=== PATIENT | female | born 1945 | race Caucasian/White ===

== ENCOUNTER → 2023-08-28 14:36 | Outpatient (REF) | payer MEDICARE, BC, SELFPAY ==
[2023-08-28 15:42] LABS: % Basophils 0.5 % (0-2); % Eosinophils 0.3 % (0-6); % Immature Granulocytes 0.4 % (0-0.5); % Lymphocytes 27.5 % (20.5-51.1); % Monocytes 10.3 % (1.7-9.3); Absolute Basophils 0.1 10^3/uL (0-0.2); Absolute Eosinophils 0.1 10^3/uL (0-0.7); Absolute Immature Granulocytes 0.1 10^3/uL (0-0.05); Absolute Lymphocytes 4.6 10^3/uL (1.2-3.4); Absolute Monocytes 1.7 10^3/uL (0.1-0.6); Absolute Neutrophils 10.3 10^3/uL (1.4-6.5); Hematocrit 43.6 % (37.0-47.0); Hemoglobin 15.5 g/dL (12.0-16.0); Mean Corp Hgb Conc. 35.6 g/dL (33.0-37.0); Mean Corpuscular Hgb 29.8 pg (27.0-31.0); Mean Corpuscular Volume 83.8 fL (81.0-99.0); Mean Platelet Volume 10.2 fL (7.4-10.4); Nucleated Red Blood Cells % 0 %; Platelet Count 288 10^3/uL (130-400); Red Cell Dist. Width 13.5 % (11.5-14.5); White Blood Cell Count 16.8 10^3/uL (4.8-10.8)
[2023-08-28 15:43] LABS: Urine Albumin Trace (Neg - Trace); Urine Bilirubin Negative (Negative); Urine Character Clear (Clear); Urine Color Yellow; Urine Glucose Negative (Negative); Urine Ketone Negative (Negative); Urine Leukocyte 1+ (Negative); Urine Nitrite Negative (Negative); Urine Occult Blood Negative (Negative); Urine Specific Gravity 1.015 (<1.030); Urine Urobilinogen Negative (Neg - 1+)
[2023-08-28 15:52] LABS: Urine Squamous Cell 0-2 /LPF (Few)
[2023-08-28 15:53] LABS: Urine Red Blood Cell None Seen /HPF (0-2); Urine White Cell Cast 0-2 /LPF
[2023-08-28 15:58] LABS: ALT (SGPT) 32 U/L (0-35); AST (SGOT) 46 U/L (14-36); Albumin 4.4 g/dl (3.5-5.0); Alkaline Phosphatase 91 U/L (38-126); Blood Urea Nitrogen 17 mg/dl (7-17); Calcium 9.9 mg/dl (8.4-10.2); Carbon Dioxide 28 mmol/L (22-30); Chloride 102 mmol/L (98-107); Glucose 82 mg/dl (70-99); Sodium 136 mmol/L (135-145); Total Bilirubin 0.9 mg/dl (0.2-1.3); Total Protein 7.9 g/dl (6.3-8.2); eGFR > 60.00
== END ==
LOC: REG 14:36
PROVIDERS: ATTENDING PHYSICIAN Nurse Practitioner Family
DX: R35.0 Frequency of micturition (principal); I10 Essential (primary) hypertension; E74.39 Other disorders of intestinal carbohydrate absorption
CPT/HCPCS: 36415; 80053; 81003; 81015; 85025; 87086

== ENCOUNTER 2024-07-01 15:15 | Inpatient (IN) | payer MEDICARE, BC, SELFPAY ==
[2024-07-01] VITALS (13 sets, daily range): BP systolic 121–221; BP diastolic 69–110; BMI 26.2; BMI 26.1
--- NOTE | 2024-07-01 11:16 | ED.GENMED ---
History of Present Illness
General
Chief Complaint: Breathing Problem
Source: patient
Exam Limitations: clinical condition and dementia
Time Seen by Provider: 07/01/24 11:10
Nursing documentation reviewed up to this point in time: agreed with
History of Present Illness
History of Present Illness:
pt is a 79 y/o F with h/o seizures on keppra, dementia
MDS status post bone marrow transplant 2003
from home via EMS
pt is poor historian, possibly just due to clinical condition
EMS said she has had a cough for a week and was in resp distress this morning
pt said she feels sick and is otherwise unable to give me any information
she arrives febrile, hypoxic, dry appearing, tachypneic
no chornic o2;
placed on nasal cannula
Past History
Past History
ED Past Medical History: Cancer, GERD and Seizures
ED Past Surgical History: Appendectomy, Orthopedic and Other (bone marrow transplant)
Social History
Tobacco: Non-smoker
Alcohol: None
Drug: None
Personal: Other
Living: with family
Employment: Other
Family History
Family History: Other
Review of Systems
Review of Systems
Allergies reviewed?: Yes
Unable to obtain full review of systems at this time due to: due to acuity
All Other Systems: Not applicable
Phy Exam
Physical Exam
Physical Exam:
GENERAL: Alert , tachypneic
EYE: pupils equal and reactive
NECK: Supple
ENT: b/l TM s clear, pharynx erythematous but no tonsillar hypertrophy or exudates significantly dry mucous membranes
CARDIAC: Tachycardic no edema
LUNGS: Tachypneic, diminished, no wheezes, no obvious rales, no cough
ABDOMEN: Soft, abdominal distention without focal tenderness, no r/g, no cvat, normal bowel sounds
NEUROLOGICAL: Alert and oriented, no focal neuro deficits
SKIN: Warm and dry, skin intact.
MUSCULOSKELETAL: No edema, well perfused.
PSYCH: Normal and appropriate interaction.
Scores
Heart Failure Risk
Heart Failure Risk Score: Not Applicable
Sepsis
Sepsis Screening
Sepsis Assessment: Severe Sepsis
Sepsis Screening: Lactate >2mmol/L and Worsening O2 Saturation
Sepsis Screen
Sepsis Screen: Severe Sepsis
Date: 07/01/24
Time: 19:13
Course
Orders/Labs/Results
Orders:
Orders
07/01/24 10:59
Electrocardiogram (*1) Urgent
Reason for Study: Tachycardia
EKG- Treatment ONCE
07/01/24 11:03
CR Chest Portable - 1 View Urgent
Comment:
Reason For Exam: SOB, tachypnea
Reason Study Needs to be Portable: Patient Unstable
07/01/24 11:07
COVID-19 Antigen Urgent
Source: Nasal Swab
Complete Blood Count/With Diff Urgent
Comprehensive Metabolic Panel Urgent
Lactic Acid Q4H
Comment: ON ICE, CANCEL 2ND ORDER IF FIRST LACTIC ACID LEVEL <2
Manual Differential Urgent
Influenza A+B Rapid Molecular Urgent
BRITTANI Source: Nasal Swab
Specimen Description:
07/01/24 11:08
Blood Culture Urgent
BRITTANI Source: Blood/Venous
Specimen Description:
07/01/24 11:09
Blood Culture Urgent
BRITTANI Source: Blood/Venous
Specimen Description:
07/01/24 11:16
Acetaminophen [Tylenol] 650 mg PO NOW STA
07/01/24 11:23
0.9% Sodium Chloride 1000 ml [Nss] 1,000 ml IV BOLUS
07/01/24 12:07
0.9% Sodium Chloride 1000 ml [Nss] 1,000 ml IV BOLUS
07/01/24 12:14
Urinalysis Reflex To Culture Urgent
Date Specimen was Collected: 07/01/24
Time Specimen was Collected: 12:02
07/01/24 12:38
Piperacillin/Tazo 3.375 Gram [Zosyn] 3.375 gram in 50 ml IV NOW
Vancomycin [Vancocin] 1,500 mg 0.9% Sodium Chloride 500 ml [Nss] 500 ml IV NOW
07/01/24 13:47
Iohexol [Omnipaque] See Protocol PO NOW STA
07/01/24 14:01
CT Pe/abd/pel W Urgent
Reason For Exam: sepsis; hypoxic, febrile, cxr clear. *with oral
07/01/24 14:15
Admit/Transfer Patient As Directed
Co-Sign Provider:
Level of Care: Inpatient admission
Assign to:: Telemetry
Physician / Group: Htay
Diagnosis: Sesis
Reason for Telemetry: Arrhythmia
Date to Stop Telemetry: 07/04/24
Time to Stop Telemetry: 11:00
Reason for Hospitalization: IV abx
Expected length of stay greater than two midnights?: Yes
ELOS- Estimated Length of Stay in days: 3
I certify the patient meets the requirements for IP care: Yes
PRN Pain Medication Management As Directed
May give lesser potent ordered pain med per pt: Yes
preference::
Protocol:: Medication orders for pain may be administered in a
manner that supports deferring to patient preference
when the pt is:
- Requesting an ordered lesser potent pain medication.
Least to most potent pain medications are defined
as: acetaminophen < NSAID < tramadol < opioids
(morphine, oxycodone, hydromorphone).
- Requesting a lesser dose of the same medication IF
ORDERED.
- Requesting a less intrusive route of administration
if both routes are prescribed by the provider (PO <
IV).
07/01/24 14:16
Code Status As Directed
Resuscitation Status: Full Code
07/01/24 14:21
Ipratropium/Albuterol Sulfate [Duoneb] 3 ml INH R NOW ONE
07/01/24 14:23
Potassium Chloride 10% Elixir [KCl Elixir] 40 meq PO NOW STA
07/01/24 17:19
D-Dimer Urgent
Lactic Acid Q4H
Comment: ON ICE, CANCEL 2ND ORDER IF FIRST LACTIC ACID LEVEL <2
Procalcitonin Urgent
PCT Algorithmm Indication: Sepsis
Troponin I Urgent
07/04/24 11:00
DC Protocol for Telemetry ONCE
Abnormal Lab Results
07/01/24 07/01/24
11:07 12:14
WBC 31.2 H 10^3/uL
(4.8-10.8)
RBC 5.44 H 10^6/uL
(4.20-5.40)
Hgb 16.1 H g/dL
(12.0-16.0)
Abs Neuts (Manual) 30.5 H 10^3/uL
(1.4-6.5)
Segmented Neutrophils 82 H %
(42-75)
Band Neutrophils 16 H %
(0-3)
Lymphocytes (Manual) 1 L %
(20-51)
Monocytes (Manual) 1 L %
(2-9)
Potassium 3.4 L mmol/L
(3.5-5.1)
Glucose 161 H mg/dl
(70-99)
Lactic Acid 3.2 H mmol/L
(0.7-2.0)
Urine Ketones Trace A
(Negative)
07/01/24 11:07
07/01/24 11:07
Vital Signs
Initial and Last Documented VS:
Initial Vital Signs
Temp Pulse Resp BP Pulse Ox
39.4 C H 119 34 166/93 92
07/01/24 10:53 07/01/24 10:53 07/01/24 10:53 07/01/24 10:53 07/01/24 10:53
Last Documented Vital Signs
Temp Pulse Resp BP Pulse Ox
36.9 C 107 17 135/98 96
07/01/24 17:36 07/01/24 19:00 07/01/24 19:00 07/01/24 17:30 07/01/24 18:30
MDM/Problems Addressed
Differential Diagnosis Includes:
sepsis, flu, uti, covid, pna
MDM/Problems Addressed:
79 y/o F
mild dementia, seizure on keppra, occ uti
here with AMS/weakness/resp distress this morning
pt apparently has had a cough and ilness for about a week
her who gave me more information after she got here said that she was at the PCP office and was 'diagnosed with something' 'maybe it was the flu'
she was taking 'some kin do fmedicine'
as far as he knew, she was eating/drinking ok up until this morning
he found her lying across the bed horizontally and was not really responding to him normally ;she was awake but weak/lethargic
febrile, normal bp, tachy, tachypneic, minimally hypoxic
mild confusion
lungs clear
wbc 31 left shift
lactate 3
covid/flu neg
ua pending (in lab)
cxr clear
empiric abx; blood cultures, fluids
UA was neg so she was put in for PE study and a/p ct because of her dementia
*Critical Care Note
Total Time (30-74mins, 75-104mins- exclusive of procedures): Not Applicable
ED Attending Note
-
Portions of this chart may have been created with voice recognition software.� Occasional wrong word or��sound alike� substitutions may have occurred due to the inherent limitations of voice recognition software.
Discharge Plan
Departure
Patient Disposition: Admit
Date of Disposition: 07/01/24
Time of Disposition: 12:38
Admit to: IMU
Presentation/result/management discussed w/ accepting MD/DO: Hospitalist
Covid-19: Negative COVID-19
Discharge Problem:
Sepsis
Interventions
Interventions:
*Risk Screen - Suicide Last Done: 07/01/24 10:53
*General Assessment Last Done: 07/01/24 10:53
*Neglect/Abuse Screening Last Done: 07/01/24 10:53
ED- Fall Risk Assessment Last Done: 07/01/24 10:53
*ED COVID-19 Vaccine History Last Done: 07/01/24 10:53
ED- Cardiac Assessment Last Done: 07/01/24 10:53
ED- Pulmonary Assessment Last Done: 07/01/24 10:53
[2024-07-01 11:33] LABS: Hematocrit 46.3 % (37.0-47.0); Hemoglobin 16.1 g/dL (12.0-16.0); Mean Corp Hgb Conc. 34.8 g/dL (33.0-37.0); Mean Corpuscular Hgb 29.6 pg (27.0-31.0); Mean Corpuscular Volume 85.1 fL (81.0-99.0); Mean Platelet Volume 10.1 fL (7.4-10.4); Platelet Count 268 10^3/uL (130-400); Red Blood Cell Count 5.44 10^6/uL (4.20-5.40); Red Cell Dist. Width 13.5 % (11.5-14.5); White Blood Cell Count 31.2 10^3/uL (4.8-10.8)
[2024-07-01] MEDS: TYLENOL 650 MG PO ×2 (11:38→21:08)
[2024-07-01 11:39] LABS: Lactic Acid 3.2 mmol/L (0.7-2.0)
[2024-07-01] MEDS: NSS 1000 IV ×2 (11:40→12:12)
[2024-07-01 11:42] LABS: ALT (SGPT) 23 U/L (0-35); AST (SGOT) 24 U/L (14-36); Albumin 4.4 g/dl (3.5-5.0); Alkaline Phosphatase 105 U/L (38-126); Blood Urea Nitrogen 13 mg/dl (7-17); Calcium 9.1 mg/dl (8.4-10.2); Carbon Dioxide 23 mmol/L (22-30); Chloride 100 mmol/L (98-107); Estimated Creatinine Clearance 53 ml/min; Glucose 161 mg/dl (70-99); Potassium 3.4 mmol/L (3.5-5.1); Sodium 136 mmol/L (135-145); Total Bilirubin 1.3 mg/dl (0.2-1.3); Total Protein 7.7 g/dl (6.3-8.2); eGFR > 60.00
[2024-07-01 11:55] LABS: COVID-19 Antigen Negative (Negative)
[2024-07-01 12:39] LABS: Absolute Neutrophils -Man Diff 30.5 10^3/uL (1.4-6.5); Band Neutrophils 16 % (0-3); Lymphocytes 1 % (20-51); Monocytes 1 % (2-9); Segmented Neutrophils 82 % (42-75)
[2024-07-01 12:40] LABS: Total Cells Counted 100
[2024-07-01] MEDS: ZOSYN 50 IV ×2 (13:08→23:06)
[2024-07-01 13:16] LABS: Urine Albumin Trace (Neg - Trace); Urine Bilirubin Negative (Negative); Urine Character Clear (Clear); Urine Color Yellow; Urine Glucose Negative (Negative); Urine Ketone Trace (Negative); Urine Leukocyte Negative (Negative); Urine Nitrite Negative (Negative); Urine Occult Blood Negative (Negative); Urine Urobilinogen Negative (Neg - 1+)
[2024-07-01 13:24] LABS: Normal RBC Morphology Yes; Platelets Checked Yes
--- NOTE | 2024-07-01 13:44 | PHANOTE ---
med rec note- called patient family on file, no answer left message to call back regrading patient home medication. patient stated she take phenobarbital but no pdmp or pharmacy fills
--- NOTE | 2024-07-01 13:54 | HPS.HSE ---
Family Physician
-
Family Physician: Jean Kathleen
Chief Complaint
-
Fever and Change in Mental Status
History of Present Illness
Patient is a 79 y/o female past medical history of seizure disorder, and cognitive impairment who presents with fever and change in mental status. Patient was found by her lying across the bed and not responding to him as normal. EMS was
called and she was brought to the emergency department for evaluation where she was found to have a fever 102.9F. Patient has been experiencing a cough for about a week and was treated with a Medrol dose pack by her PCP. Upon my evaluation patient
complained of left lower quadrant abdominal pain. She denies vomiting, or diarrhea.
Medical History
Past Medical History
Past Medical History: Reports Other
Additional Past Medical History:
Seizure Disorder
Anxiety/Depression
Mild Cognitive Impairment
Essential Hypertension
Hyperlipidemia
Mild Intermittent Asthma
Myelodysplastic Syndrome s/p Bone Marrow Transplant
Past Surgical History: Reports Other
Additional Past Surgical History:
Appendectomy
Bunionectomy
Social History
Tobacco: Non-smoker
Personal:
Living: With Family
Family History
Family History: Not pertinent
Allergies / Home Medications
Allergies reflects when Allergies were last updated in [employer].
Home Medications with original date entered in [employer] [facility]
Allergy/Medication List:
Allergies
Allergy/AdvReac Type Severity Reaction Status Date / Time
Milk Containing Products Allergy Mild cough Verified 01/02/23 15:54
(Dairy)
[Milk Containing Products]
filgrastim [From Neupogen] Allergy Pharmacy Verified 01/02/23 15:54
to Review
levofloxacin [From Levaquin] Allergy Pharmacy Verified 01/02/23 15:54
to Review
Sulfa (Sulfonamide Allergy Pharmacy Verified 01/02/23 15:54
Antibiotics) to Review
Home Medications
levetiracetam 250 mg tablet (Keppra) 250 mg PO BID 07/01/24
Review of Systems
-
Unable to obtain full review of systems at this time due to: Dementia
Physical Exam
Vital Signs
Vital Signs
Temp Pulse Resp BP Pulse Ox
98.3 F 110 33 139/78 95
07/01/24 13:08 07/01/24 12:15 07/01/24 12:15 07/01/24 12:00 07/01/24 12:15
Physical Exam
General: Comfortable and Conversant
HEENT: Anicteric and Moist mucous membranes
Respiratory: Clear and Non Labored Respirations
Cardiac: S1/S2, Regular Rhythm and Tachycardia
GI: Soft and Tender (LLQ without rebound or guarding)
Rectal: Deferred by Provider
Genito-urinary: Clear Urine
Musculoskeletal: No Clubbing, No Cyanosis and No Edema
Skin: Warm and Dry
Neuro: Awake, Alert, Nonfocal/grossly intact and Other
Psych: Calm
Laboratory Results
-
07/01/24 11:07
07/01/24 11:07
Laboratory Results
Lactic Acid 3.2 mmol/L (0.7-2.0) H 07/01/24 11:07
Total Bilirubin 1.3 mg/dl (0.2-1.3) 07/01/24 11:07
AST 24 U/L (14-36) 07/01/24 11:07
ALT 23 U/L (0-35) 07/01/24 11:07
Alkaline Phosphatase 105 U/L (38-126) 07/01/24 11:07
Data Reviewed
-
Diagnostic Radiology: Report Reviewed by me
Lab Data: Labs Reviewed by me
Impression/Plan
-
TME and Sepsis, possible intra-abdominal source
-Check Abd/Pelvis CT scan
-Await blood cultures
-Continue Vancomycin and Zosyn pending further imaging and culture data
-Check Procalcitonin
-Trend Lactic Acid
Tachycardia/Tachypnea, suspect related to sepsis
-ED raised consider for possible PE
-Check D-Dimer
Mild Intermittent Asthma, recent acute exacerbation
-Continue DuoNeb QID and PRN
Seizure Disorder
-Continue Keppra
Cognitive Impairment
-Monitor for mood/behavior changes during hospitalization
MDS s/p Bone Marrow Transplant
-Monitor counts
DVT proph: Lovenox
Code Status: Full Code
[2024-07-01] MEDS: VANCOCIN 530 MG IV (14:35)
[2024-07-01] MEDS: OMNIPAQUE 50 ML PO (14:35)
[2024-07-01] MEDS: DUONEB 3 ML INH ×2 (14:36→21:08)
[2024-07-01] MEDS: KCL ELIXIR 40 MEQ PO (14:36)
--- NOTE | 2024-07-01 15:21 | W.PN.UPDATE ---
Update Note
Progress Note Update
I could not get any information from the patient with MCI / Dementia
Information gathered by chart review and speaking with the ER staff.
This note serves as an addendum to the H&P by hot header operator GINGER
Maci MÉNDEZ
HPI
79 F HX seizure disorder, and cognitive impairment who presents with fever and change in mental status.
- Patient was found by her lying across the bed and not responding to him as normal.
- EMS was called and she was brought to the emergency department for evaluation where she was found to have a fever 102.9F.
- Patient has been experiencing a cough for about a week and was treated with a Medrol dose pack by her PCP.
Upon my evaluation patient complained of left lower quadrant abdominal pain. She denies vomiting, or diarrhea.
PHX; as above
Reviewed VS: T max 102.9 ST 110 BP 140/78 RR 3 POx low to mid 90s on RA
PE
General: Comfortable
HEENT: Anicteric and Moist mucous membranes
Respiratory: b/l diffuse rhonchi
Cardiac: S1/S2, Regular Rhythm and Tachycardia
GI: Soft and Tender (LLQ without rebound or guarding)
Rectal: Deferred by Provider
: Clear Urine
Musculoskeletal: No Clubbing, No Cyanosis and No Edema
Skin: Warm and Dry
Neuro: Awake, Alert, Nonfocal/grossly intact
Psych: Calm
Data:
WC 31 9 (s/p steroids last week)
Band 16
Hgb 16.1
K 3.4
LA 3.2
NEG Covid
EKG
SINUS TACHYCARDIA
LEFT AXIS DEVIATION
MINIMAL VOLTAGE CRITERIA FOR LVH, MAY BE NORMAL VARIANT ( Gus product )
NONSPECIFIC ST AND T WAVE ABNORMALITY
POOR R WAVE PROGRESSION
ABNORMAL ECG
NO PREVIOUS ECGS AVAILABLE
Confirmed by DIANE MARIA MD ([id number]) on 07/01/2024 1:16:16 PM
07/01/23 CXR: No acute cardiopulmonary process.
02/02/20 ECHO
normal left ventricular systolic function;
left ventricular ejection fraction is 70%.
Normal regional wall motion.
Mild concentric left ventricular hypertrophy. Normal diastolic function.
Normal right ventricular size and function.
No significant valvular disease.
No prior study available for comparison.
ASSESSMENT & PLAN
SIRS suspect severe sespsis ( LA 3.2)
Associated TME
DDX: possible intra-abdominal source
- agree with Abd/Pelvis CT scan
- agree with Vancomycin and Zosyn pending further imaging and culture data
- Check Procalcitonin
- Trend Lactic Acid
Tachycardia/Tachypnea, suspect related to sepsis
-ED raised consider for possible PE - low suspicion
- Check D-Dimer - if it is significantly elevated will consider CTC for PE
Clinically astatic bronchitis
HX Mild Intermittent Asthma, recent acute exacerbation
-Continue DuoNeb QID and PRN
- add IV Decadron 4 mg BID
Seizure Disorder
-Continue Keppra
Cognitive Impairment
-Monitor for mood/behavior changes during hospitalization
MDS s/p Bone Marrow Transplant
-Monitor counts
DVT proph: Lovenox
Code Status: Full Code
IP TLM
[2024-07-01 17:44] LABS: D-Dimer 1.23 ug/mlFEU (0.00-0.50); Lactic Acid 4.6 mmol/L (0.7-2.0)
[2024-07-01 17:58] LABS: Troponin I < 0.012 ng/ml
[2024-07-01 17:59] LABS: Procalcitonin 6.85 ng/ml (0.0-0.25)
--- NOTE | 2024-07-01 21:32 | PTCARENOTE ---
pt with 102.9 fever with sob and tachycardia- nebs tyelnol given see mar- work of breathing improved
[2024-07-01] MEDS: TRANDATE 5 MG IV (21:48)
[2024-07-01] MEDS: LR 1000 IV (21:57)
[2024-07-01 22:37] LABS: Lactic Acid 2.4 mmol/L (0.7-2.0)
--- NOTE | 2024-07-01 23:02 | PHA.VAN.IN ---
Assessment
- Assessment
Renal Function: Appears similar to baseline
Concomitant Antimicrobials: ZOSYN
- Previous Dosing Experience
Previous Regimen: NONE
AUC Dosing Plan
- Dosing Variables
Dosing Weight (kg): 73.6
Dosing CrCl (ml/min): 53
Vd coefficient (L/kg): 0.7
- Empiric Dosing
Initial / Loading Dose: 1500MG
Maintenance Regimen: 1250MG IV Q24H
Estimated AUC (mcg*h/mL): 520
Estimated Peak (mcg*h/mL): 35.3
Estimated Trough (mcg/ml): 11.9
Estimated Half Life (H): 14.3
Pharmacokinetics Vancomycin I
- -
Patient Age: 79
Patient Sex: Female
Vancomycin Day #: 1
Indication: Other (SEPSIS)
Requesting Provider: HONEY
Pertinent Antimicrobial Allergies:
Allergies
Sulfa (Sulfonamide Antibiotics) Allergy (Verified 07/01/24 18:27)
Unknown
levofloxacin [From Levaquin] Allergy (Verified 07/01/24 18:27)
Unknown
Height / Weight:
Height 5 ft 6 in
Actual Weight 73.3 kg
- Vital Signs / Lab Results
Temp Pulse Resp BP Pulse Ox
98.6 F 104 24 121/69 96
07/01/24 22:40 07/01/24 22:40 07/01/24 22:40 07/01/24 22:40 07/01/24 22:40
Lab Results - Hematology
07/01/24
11:07
WBC 31.2 H
Band Neutrophils 16 H
Lab Results - Chemistry
07/01/24
11:07
BUN 13
Creatinine 0.8
Estimated Creat Clear 53
Albumin 4.4
07/01/24 07/01/24 07/01/24
11:07 17:19 22:16
Lactic Acid 3.2 H 4.6 H* 2.4 H
Lab Results - Urine
07/01/24
12:14
Urine Nitrite (Reflex) Negative
Leukocyte Esterase Rfl Negative
Microbiology Results
07/01/24 11:09 Blood Culture - Preliminary
Blood/Venous Positive culture in progress
07/01/24 11:08 Blood Culture - Preliminary
Blood/Venous Positive culture in progress
07/01/24 11:07 Influenza Types A & B (NOVA) - Final
Nasal Swab Negative for Influenza A & B, NAAT
Negative results must be combined with clinical observations
and patient history.
Nucleic Acid Amplification test (NAAT)performed on the
[employer] platform.
[2024-07-01] MEDS: KEPPRA 250 MG PO (23:03)
[2024-07-01] MEDS: LOVENOX 40 MG SC (23:04)
[2024-07-01] MEDS: DECADRON 4 MG IV (23:06)
--- NOTE | 2024-07-01 23:28 | PTCARENOTE ---
Pt admitted to 2N. Pt AAOx1, confused, forgetful and anxious at times. Assessment done and charted. Bed alarm in place. Will cont with tx plan.
[2024-07-02] VITALS (7 sets, daily range): BP systolic 116–165; BP diastolic 69–92; PULSE 99; O2SAT 98; BMI 26.2
[2024-07-02 02:17] LABS: Lactic Acid 1.4 mmol/L (0.7-2.0)
[2024-07-02] MEDS: ZOSYN 50 IV ×2 (04:59→12:12)
[2024-07-02] MEDS: VANCOCIN 275 MG IV (05:34)
[2024-07-02] MEDS: DUONEB 3 ML INH ×3 (06:07→20:04)
[2024-07-02] MEDS: KEPPRA 250 MG PO ×2 (08:18→21:00)
[2024-07-02 08:28] LABS: Hemoglobin 13.3 g/dL (12.0-16.0); Mean Corpuscular Hgb 29.7 pg (27.0-31.0); Mean Corpuscular Volume 84.8 fL (81.0-99.0); Mean Platelet Volume 10.5 fL (7.4-10.4); Platelet Count 226 10^3/uL (130-400); Red Blood Cell Count 4.48 10^6/uL (4.20-5.40); Red Cell Dist. Width 13.7 % (11.5-14.5); White Blood Cell Count 22.1 10^3/uL (4.8-10.8)
[2024-07-02 08:51] LABS: Blood Urea Nitrogen 10 mg/dl (7-17); Calcium 8.5 mg/dl (8.4-10.2); Carbon Dioxide 21 mmol/L (22-30); Chloride 105 mmol/L (98-107); Estimated Creatinine Clearance 71 ml/min; Glucose 166 mg/dl (70-99); Potassium 3.5 mmol/L (3.5-5.1); Sodium 138 mmol/L (135-145); eGFR > 60.00
[2024-07-02] MEDS: LR 1000 IV ×2 (09:43→23:38)
--- NOTE | 2024-07-02 10:11 | CM ---
Addendum entered by Della Farrar RN 07/02/24 13:58:
CM spoke with the patient's spouse Tolu via telephone. Updated on ordered PT/OT evaluations.
Original Note:
Reviewed the chart notes and spoke with the patient at the bedside. The patient is admitted for sepsis. The patient resides with her spouse in a two story home with two steps to enter. Master bedroom on first level. Patient reports no
DME/VN/SNF. The patient is currently on supplemental O2. The patient confirmed her pharmacy of choice is [facility] and her PCP is Dr. Kathleen. CM continues to be available to patient/family and is monitoring medical plan for needs at discharge.
Plan: Discharge plans will depend on the patient's progress.
[2024-07-02] MEDS: TYLENOL 650 MG PO ×2 (10:22→21:23)
--- NOTE | 2024-07-02 10:36 | PHA.VAN.FU ---
Vancomycin Assessment / Plan
- Assessment
Renal Function: SCR Decreasing
WBC's are: Trending Down
In the past 24 hrs, patient has been: Febrile
Concomitant Antimicrobials: Piperacillin/Tazobactam 3.375gm Q6H
- Dosing Plan
Continue: 1250mg Q24H. If SrCr continues to improve, can adjust dose to 750mg Q12H
- Monitoring Plan
No level(s) ordered at this time: Consider levels in next few days
- Follow Up
Pharmacy will continue to follow.
Vancomycin Follow UP
- -
Patient Age: 79
Patient Sex: Female
Vancomycin Day #: 2
Indication: Other (SEPSIS)
Requesting Provider: HONEY
Pertinent Antimicrobial Allergies:
Allergies
Sulfa (Sulfonamide Antibiotics) Allergy (Verified 07/01/24 18:27)
Unknown
levofloxacin [From Levaquin] Allergy (Verified 07/01/24 18:27)
Unknown
Height / Weight:
Height 5 ft 6 in
Actual Weight 73.618 kg
- Vital Signs / Lab Results
Temp Pulse Resp BP Pulse Ox
97.8 F 97 18 126/83 97
07/02/24 07:35 07/02/24 07:35 07/02/24 07:35 07/02/24 07:35 07/02/24 07:35
Lab Results - Hematology
07/01/24 07/02/24
11:07 07:40
WBC 31.2 H 22.1 H
Band Neutrophils 16 H
Lab Results - Chemistry
07/01/24 07/02/24
11:07 07:40
BUN 13 10
Creatinine 0.8 0.6
Estimated Creat Clear 53 71
Albumin 4.4
07/01/24 07/01/24 07/01/24
11:07 17:19 22:16
Lactic Acid 3.2 H 4.6 H* 2.4 H
07/02/24
01:40
Lactic Acid 1.4
Lab Results - Urine
07/01/24
12:14
Urine Nitrite (Reflex) Negative
Leukocyte Esterase Rfl Negative
Microbiology Results
07/01/24 11:08 Blood Culture - Preliminary
Blood/Venous Positive culture in progress
Gram Stain - Final
07/01/24 11:09 Blood Culture - Preliminary
Blood/Venous Positive culture in progress
Gram Stain - Final
07/01/24 11:07 Influenza Types A & B (NOVA) - Final
Nasal Swab Negative for Influenza A & B, NAAT
Negative results must be combined with clinical observations
and patient history.
Nucleic Acid Amplification test (NAAT)performed on the
[employer] platform.
[2024-07-02] MEDS: DECADRON 4 MG IV (12:11)
--- NOTE | 2024-07-02 14:57 | W.PN.HOSP.TC ---
Today's Communication/Plan
-
cont iv abx
repeat blood cultures, echo
id consulted
Assessment / Plan
Assessment / Plan
General: Comfortable and Conversant
HEENT: Anicteric and Moist mucous membranes
Respiratory: Clear and Non Labored Respirations
Cardiac: S1/S2, Regular Rhythm and Tachycardia
GI: Soft and non tender
Rectal: Deferred by Provider
Genito-urinary: Clear Urine
Musculoskeletal: No Clubbing, No Cyanosis and No Edema
Skin: Warm and Dry
Neuro: Awake, Alert, Nonfocal/grossly intact and Other
Psych: Calm
Severe Sepsis
Bacteremia
-unclear source
-cont iv abx
-ID consulted
-f/u cultures
-ECHO ordered
Mild Intermittent Asthma, recent acute exacerbation
-Continue DuoNeb QID and PRN
Seizure Disorder
-Continue Keppra
Acute on Chronic Metabolic Encephalopathy
Cognitive Impairment
-Monitor for mood/behavior changes during hospitalization
-Monitor with treatment above
MDS s/p Bone Marrow Transplant
-Monitor counts
DVT proph: Lovenox
Code Status: Full Code
Total time spent on today's encounter was 50 minutes which included time spent in counseling the patient/family regarding diagnosis and treatment plan as listed above, goals of care, and symptom management. Case was discussed with nursing staff,
specialists, and care coordinators/case management. All labs and imaging personally reviewed by me. Remainder the time spent in detailed review of previous records, lab data, imaging, and other medical provider documentation.
Anticipated Discharge: Within 24 hours
Subjective/Interval History
-
Date of Service: July 02, 2024
No acute events overnight
Objective Data
-
Labs:
Laboratory Results
07/02/24
07:40
WBC 22.1 H
Hgb 13.3
Hct 38.0
Plt Count 226
Sodium 138
Potassium 3.5
Chloride 105
Carbon Dioxide 21 L
BUN 10
Creatinine 0.6
Glucose 166 H
Calcium 8.5
Vital Signs:
Vital Signs
Temp Pulse Resp BP Pulse Ox
98.7 F 95 16 116/69 95
07/02/24 11:35 07/02/24 11:35 07/02/24 11:35 07/02/24 11:35 07/02/24 11:44
I&O
07/01/24 07/02/24 07/03/24
06:59 06:59 06:59
Intake Total 1050 / 1050
Output Total 1900 / 1900
Balance -850 / -850
Review of Systems
-
History Source: Patient
All other systems: Not reviewed unless documented
Data Reviewed
-
Diagnostic Radiology: Report Reviewed by me
CT Scan: Report Reviewed by me
Labs: Labs Reviewed by me
--- NOTE | 2024-07-02 15:05 | CON.ID ---
Consultation
-
Date/Time Consultation Requested: July 02, 2024 1500
Date/Time Consultation Performed: July 02, 2024 1505
Requesting Provider: Dr. Geovany Tejada
Performing Provider: Dr. Priyanka Maldonado
Reason for Consultation: Streptococcus bacteremia
Chief Complaint / Past History
Chief Complaint
Change in mental status
History of Present Illness
79-year-old female with history of MDS status post bone marrow transplant, seizure disorder, mild cognitive impairment who presented to the hospital on July 01 due to change in mental status. Of note patient is somewhat of a poor historian. Per
record patient has been having cough x 1 week and was treated with a course of steroid. Patient then became lethargic and therefore she was brought to the ER. In the ER she was febrile 102.9, white count 31.2 with 16% bands, elevated lactic acid.
Chest x-ray negative. CT of the chest abdomen and pelvis unremarkable. She was started on vancomycin and Zosyn. Admission blood cultures positive for streptococcal pneumonia. Patient cannot recall events at home. She denies fevers or chills.
Denies headache or neck stiffness. She thinks she is up-to-date with her pneumococcal vaccine. Patient reports she has intermittent cough when she has rhinorrhea. No shortness of breath. She feels well now.
Past History
Additional Past Medical History:
hx MDS s/p bone marrow transplant
Seizure disorder
Mild cognitive impairment
HTN
Mild asthma
Dyslipidemia
Anxiety/depression
Appendectomy
Bunionectomy
Allergy History:
filgrastim [From Neupogen] Allergy (Verified 07/01/24 18:27)
Unknown
levofloxacin [From Levaquin] Allergy (Verified 07/01/24 18:27)
Unknown
Milk Containing Products (Dairy) [Milk Containing Products] Allergy (Verified 07/01/24 18:27)
cough
Sulfa (Sulfonamide Antibiotics) Allergy (Verified 07/01/24 18:27)
Unknown
Medications Reviewed: Yes
Current Antibiotics:
Vancomycin d2
Zosyn d2
Social History
Tobacco: Non-Smoker
Alcohol: None
Personal:
Family History
Family History: Not Pertinent
Review of Systems
Review of Systems
General: Negative Chills or Change in Appetite
HEENT: Negative Stiff Neck, Sinus Problems or Headache
Cardiovascular: Negative Chest Pain
Respiratory: Negative Dyspnea or Sputum Production
Gasteroenterology: Negative Nausea, Vomiting or Diarrhea
Genital / Urological: Negative Dysuria or Flank Pain
Endocrine: Negative Weakness
Skin / Hair / Nails: Negative Rash
Neurological: Negative Dizziness
All systems: All other systems were reviewed and were negative
Vital Signs
Temp Pulse Resp BP Pulse Ox
98.7 F 95 16 116/69 95
07/02/24 11:35 07/02/24 11:35 07/02/24 11:35 07/02/24 11:35 07/02/24 11:44
Selected Entries
07/01/24
21:22
Temp 102.9 F H
Physical Exam
Physical Exam
Constitutional: No Acute Distress and Comfortable
Eyes: No Conjunctival Hemorrhage and Sclera Anicteric
Cardiovascular: Regular Rate and S1/S2
Pulmonary: Clear
Gastrointestinal: Soft, Non Tender and Non Distended
Genito-Urinary: Negative CVA Tenderness
Extremities: Negative Edema
Neurological: AO x 3; Negative Meningeal Signs
Lab / Diagnostic Study Results
07/02/24 07:40
07/02/24 07:40
Total Counted 100 07/01/24 11:07
Abs Neuts (Manual) 30.5 10^3/uL (1.4-6.5) H 07/01/24 11:07
Segmented Neutrophils 82 % (42-75) H 07/01/24 11:07
Band Neutrophils 16 % (0-3) H 07/01/24 11:07
Lymphocytes (Manual) 1 % (20-51) L 07/01/24 11:07
Lactic Acid 1.4 mmol/L (0.7-2.0) 07/02/24 01:40
Procalcitonin 6.85 ng/ml (0.0-0.25) H* 07/01/24 17:19
Microbiology Results
Micro:
07/01/24 11:09 Blood Culture - Preliminary
Blood/Venous Streptococcus pneumoniae
Gram Stain - Final
07/01/24 11:08 Blood Culture - Preliminary
Blood/Venous Streptococcus pneumoniae
Gram Stain - Final
07/02/24 09:32 Blood Culture - Pending
Blood/Venous
07/01/24 23:27 MRSA Screen - Pending
Nose
07/01/24 11:07 Influenza Types A & B (NOVA) - Final
Nasal Swab Negative for Influenza A & B, NAAT
Negative results must be combined with clinical observations
and patient history.
Nucleic Acid Amplification test (NAAT)performed on the
[employer] platform.
07/01/24 Chest/A/P CT: Evidence of previous right upper lobectomy. No evidence of pneumonia.
07/01/24 CXR: No acute cardiopulmonary process.
Assessment / Plan
# Streptococcus pneumoniae bacteremia without PNA nor meningitis
# Fever, leukocytosis, bandemia, sepsis
- Narrow Vanco/Zosyn to ceftriaxone.
- Follow repeat blood cx.
- TTE pending
- Trend temps/wbc.
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
hx MDS s/p bone marrow transplant
Seizure disorder
Mild cognitive impairment
HTN
Mild asthma
Dyslipidemia
Anxiety/depression
Appendectomy
Bunionectomy
[2024-07-02] MEDS: DUONEB INH ×2 (16:41→19:45)
[2024-07-02] MEDS: STERILE WATER FOR INJECTION 20 ML IV (17:44)
[2024-07-02] MEDS: LOVENOX 40 MG SC (17:45)
[2024-07-02] MEDS: ROCEPHIN 2000 MG IV (17:45)
[2024-07-03] VITALS (7 sets, daily range): BP systolic 136–147; BP diastolic 75–91; PULSE 98; O2SAT 95; BMI 25.9
[2024-07-03] MEDS: RISPERDAL M-TAB (ORALLY DISINTEGRATING) 0.5 MG PO (03:34)
--- NOTE | 2024-07-03 04:49 | PTCARENOTE ---
Patient attempting to get out of bed multiple times and unable to be redirected. Patient combative/aggressive w/ staff. Redirection strategies unsuccessful after multiple attempts. BRAND SALES CONSULTANT notified. Risperadal 0.5mg x1 ordered and B/L soft wrist
restraints and 4 side rails (and gerichair) applied.
--- NOTE | 2024-07-03 05:14 | W.PN.UPDATE ---
Update Note
Progress Note Update
0330 RN reports pt with multiple attempts to get oob tonight. Pt does have hx cognitive impairments
PT necessitating restraints and risperidone trial (did not help much)
[2024-07-03 06:42] LABS: Hematocrit 36.6 % (37.0-47.0); Hemoglobin 12.6 g/dL (12.0-16.0); Mean Corp Hgb Conc. 34.4 g/dL (33.0-37.0); Mean Corpuscular Hgb 29.5 pg (27.0-31.0); Mean Corpuscular Volume 85.7 fL (81.0-99.0); Mean Platelet Volume 10.7 fL (7.4-10.4); Platelet Count 214 10^3/uL (130-400); Red Blood Cell Count 4.27 10^6/uL (4.20-5.40); Red Cell Dist. Width 13.9 % (11.5-14.5); White Blood Cell Count 26.1 10^3/uL (4.8-10.8)
[2024-07-03 07:11] LABS: ALT (SGPT) 25 U/L (0-35); AST (SGOT) 30 U/L (14-36); Albumin 3.4 g/dl (3.5-5.0); Alkaline Phosphatase 84 U/L (38-126); Blood Urea Nitrogen 15 mg/dl (7-17); Carbon Dioxide 28 mmol/L (22-30); Chloride 106 mmol/L (98-107); Estimated Creatinine Clearance 71 ml/min; Glucose 100 mg/dl (70-99); Potassium 3.6 mmol/L (3.5-5.1); Sodium 142 mmol/L (135-145); Total Bilirubin 0.9 mg/dl (0.2-1.3); Total Protein 6.3 g/dl (6.3-8.2); eGFR > 60.00
[2024-07-03] MEDS: KEPPRA 250 MG PO ×2 (07:39→19:52)
[2024-07-03] MEDS: DUONEB 3 ML INH ×4 (07:44→18:12)
--- NOTE | 2024-07-03 13:28 | W.PN.ID1 ---
Date of Service
Date of Service: July 03, 2024
Today's Communication
Continue ceftriaxone for now.
Assessment / Plan
# Streptococcus pneumoniae bacteremia without PNA nor meningitis
# Fever (resolved), leukocytosis (persists), bandemia, sepsis
- repeat blood cx neg to date
- TTE no gross vege
- Continue ceftriaxone.
- Follow wbc.
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
hx MDS s/p bone marrow transplant
Seizure disorder
Mild cognitive impairment
HTN
Mild asthma
Dyslipidemia
Anxiety/depression
Appendectomy
Bunionectomy
Chief Complaint
-: Bacteremia
Subjective / Review of Systems
Denies any symptoms.
Vital Signs / Physical Exam
Vital Signs
Vital Signs
Temp Pulse Resp BP Pulse Ox
97.9 F 111 17 136/75 93
07/03/24 12:21 07/03/24 12:21 07/03/24 12:21 07/03/24 12:21 07/03/24 12:21
Physical Exam
Constitutional: No Acute Distress
Cardiovascular: Regular Rate and S1/S2
Pulmonary: Clear
Gastrointestinal: Soft, Non Tender and Non Distended
Extremities: Negative Edema
Neurological: Awake and Alert; Negative Meningeal Signs
Objective Data
Lab Data
Lab Results
07/03/24 05:41
07/03/24 05:41
Estimated Creat Clear 71 ml/min 07/03/24 05:41
Lactic Acid 1.4 mmol/L (0.7-2.0) 07/02/24 01:40
Total Bilirubin 0.9 mg/dl (0.2-1.3) 07/03/24 05:41
AST 30 U/L (14-36) 07/03/24 05:41
ALT 25 U/L (0-35) 07/03/24 05:41
Alkaline Phosphatase 84 U/L (38-126) 07/03/24 05:41
Most recent labs reviewed.
Micro Results:
07/01/24 11:09 Blood Culture - Preliminary
Blood/Venous Streptococcus pneumoniae
Gram Stain - Final
07/01/24 11:08 Blood Culture - Preliminary
Blood/Venous Streptococcus pneumoniae#2
Streptococcus pneumoniae
Gram Stain - Final
07/03/24 11:22 Blood Culture - Pending
Blood/Venous
07/02/24 09:32 Blood Culture - Preliminary
Blood/Venous No Growth in 24 hours- Final report to follow
07/01/24 23:27 MRSA Screen - Final
Nose No Methicillin Resistant Staphylococcus aureus isolated.
07/01/24 11:07 Influenza Types A & B (NOVA) - Final
Nasal Swab Negative for Influenza A & B, NAAT
Negative results must be combined with clinical observations
and patient history.
Nucleic Acid Amplification test (NAAT)performed on the
[employer] platform.
07/01/24 Chest/A/P CT: Evidence of previous right upper lobectomy. No evidence of pneumonia.
07/01/24 CXR: No acute cardiopulmonary process.
--- NOTE | 2024-07-03 13:39 | W.PN.HOSP.TC ---
Today's Communication/Plan
-
cont ceftriaxone
f/u cultures
Assessment / Plan
Assessment / Plan
General: Comfortable and Conversant
HEENT: Anicteric and Moist mucous membranes
Respiratory: Clear and Non Labored Respirations
Cardiac: S1/S2, Regular Rhythm and Tachycardia
GI: Soft and non tender
Rectal: Deferred by Provider
Genito-urinary: Clear Urine
Musculoskeletal: No Clubbing, No Cyanosis and No Edema
Skin: Warm and Dry
Neuro: Awake, Alert, Nonfocal/grossly intact and Other
Psych: Calm
Severe Sepsis
Bacteremia
-unclear source
-cont iv abx
-ID consulted
-f/u cultures
-ECHO with no vegetataions
Mild Intermittent Asthma, recent acute exacerbation
-Continue DuoNeb QID and PRN
Seizure Disorder
-Continue Keppra
Acute on Chronic Metabolic Encephalopathy
Cognitive Impairment
-Monitor for mood/behavior changes during hospitalization
-Monitor with treatment above
MDS s/p Bone Marrow Transplant
-Monitor counts
DVT proph: Lovenox
Code Status: Full Code
Anticipated Discharge: Within 24 hours
Subjective/Interval History
-
Date of Service: July 03, 2024
no acute events
Objective Data
-
Labs:
Laboratory Results
07/03/24
05:41
WBC 26.1 H
Hgb 12.6
Hct 36.6 L
Plt Count 214
Sodium 142
Potassium 3.6
Chloride 106
Carbon Dioxide 28
BUN 15
Creatinine 0.6
Glucose 100 H
Calcium 9.0
Total Bilirubin 0.9
AST 30
ALT 25
Alkaline Phosphatase 84
Vital Signs:
Vital Signs
Temp Pulse Resp BP Pulse Ox
97.9 F 111 17 136/75 93
07/03/24 12:21 07/03/24 12:21 07/03/24 12:21 07/03/24 12:21 07/03/24 12:21
I&O
07/02/24 07/03/24 07/04/24
06:59 06:59 06:59
Intake Total 1050 / 1050 1360 / 1360
Output Total 1900 / 1900
Balance -850 / -850 1360 / 1360
Review of Systems
-
History Source: Patient
All other systems: Not reviewed unless documented
Data Reviewed
-
Diagnostic Radiology: Report Reviewed by me
CT Scan: Report Reviewed by me
Labs: Labs Reviewed by me
[2024-07-03] MEDS: TYLENOL 650 MG PO ×2 (13:43→19:53)
[2024-07-03] MEDS: LOVENOX 40 MG SC (17:33)
[2024-07-03] MEDS: ROCEPHIN 2000 MG IV (17:34)
[2024-07-03] MEDS: STERILE WATER FOR INJECTION 20 ML IV (17:34)
[2024-07-04] VITALS (7 sets, daily range): BP systolic 143–165; BP diastolic 82–97; BMI 25.7
[2024-07-04] MEDS: TYLENOL 650 MG PO ×3 (04:58→19:27)
[2024-07-04 06:42] LABS: Hematocrit 37.2 % (37.0-47.0); Hemoglobin 12.9 g/dL (12.0-16.0); Mean Corp Hgb Conc. 34.7 g/dL (33.0-37.0); Mean Corpuscular Hgb 29.6 pg (27.0-31.0); Mean Corpuscular Volume 85.3 fL (81.0-99.0); Mean Platelet Volume 10.7 fL (7.4-10.4); Platelet Count 239 10^3/uL (130-400); Red Blood Cell Count 4.36 10^6/uL (4.20-5.40); White Blood Cell Count 17.1 10^3/uL (4.8-10.8)
[2024-07-04 07:10] LABS: ALT (SGPT) 31 U/L (0-35); AST (SGOT) 37 U/L (14-36); Albumin 3.4 g/dl (3.5-5.0); Alkaline Phosphatase 102 U/L (38-126); Blood Urea Nitrogen 16 mg/dl (7-17); Calcium 8.6 mg/dl (8.4-10.2); Carbon Dioxide 25 mmol/L (22-30); Chloride 105 mmol/L (98-107); Estimated Creatinine Clearance 71 ml/min; Glucose 95 mg/dl (70-99); Potassium 3.2 mmol/L (3.5-5.1); Sodium 140 mmol/L (135-145); Total Bilirubin 0.9 mg/dl (0.2-1.3); Total Protein 6.4 g/dl (6.3-8.2); eGFR > 60.00
[2024-07-04] MEDS: KEPPRA 250 MG PO ×2 (07:55→19:27)
[2024-07-04] MEDS: DUONEB 3 ML INH ×4 (08:29→19:58)
[2024-07-04] MEDS: KCL ELIXIR 40 MEQ PO (09:34)
--- NOTE | 2024-07-04 11:43 | W.PN.ID1 ---
Date of Service
Date of Service: July 04, 2024
Today's Communication
- At time of discharge, transition to amoxicillin 1g po q8H through 07/13/24.
Assessment / Plan
# Streptococcus pneumoniae bacteremia without PNA nor meningitis
# Fever (resolved)
# Leukocytosis trending down
- repeat blood cx neg to date
- TTE no gross vege
- Continue ceftriaxone (d3)
- At time of discharge, transition to amoxicillin 1g po q8H through 07/13/24.
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
hx MDS s/p bone marrow transplant
Seizure disorder
Mild cognitive impairment
HTN
Mild asthma
Dyslipidemia
Anxiety/depression
Appendectomy
Bunionectomy
Chief Complaint
-: Bacteremia
Subjective / Review of Systems
No events overnight.
Vital Signs / Physical Exam
Vital Signs
Vital Signs
Temp Pulse Resp BP Pulse Ox
98.2 F 106 18 143/82 94
07/04/24 08:21 07/04/24 09:35 07/04/24 08:34 07/04/24 09:35 07/04/24 08:34
Physical Exam
Constitutional: No Acute Distress
Cardiovascular: Regular Rate and S1/S2
Pulmonary: Clear
Gastrointestinal: Soft, Non Tender and Non Distended
Extremities: Negative Edema
Neurological: Awake and Alert; Negative Meningeal Signs
Objective Data
Lab Data
Lab Results
07/04/24 05:36
07/04/24 05:36
Estimated Creat Clear 71 ml/min 07/04/24 05:36
Lactic Acid 1.4 mmol/L (0.7-2.0) 07/02/24 01:40
Total Bilirubin 0.9 mg/dl (0.2-1.3) 07/04/24 05:36
AST 37 U/L (14-36) H 07/04/24 05:36
ALT 31 U/L (0-35) 07/04/24 05:36
Alkaline Phosphatase 102 U/L (38-126) 07/04/24 05:36
Most recent labs reviewed.
Micro Results:
07/03/24 11:22 Blood Culture - Preliminary
Blood/Venous No Growth in 24 hours- Final report to follow
07/02/24 09:32 Blood Culture - Preliminary
Blood/Venous No Growth in 48 hours- Final report to follow
07/01/24 11:09 Blood Culture - Final
Blood/Venous Streptococcus pneumoniae
Gram Stain - Final
07/01/24 11:08 Blood Culture - Final
Blood/Venous Streptococcus pneumoniae#2
Streptococcus pneumoniae
Gram Stain - Final
07/04/24 07:10 C. difficile GDH Antigen & Toxins - Final
Feces/Stool Negative for toxigenic C.difficile
07/01/24 23:27 MRSA Screen - Final
Nose No Methicillin Resistant Staphylococcus aureus isolated.
07/01/24 11:07 Influenza Types A & B (NOVA) - Final
Nasal Swab Negative for Influenza A & B, NAAT
Negative results must be combined with clinical observations
and patient history.
Nucleic Acid Amplification test (NAAT)performed on the
[employer] platform.
07/01/24 Chest/A/P CT: Evidence of previous right upper lobectomy. No evidence of pneumonia.
07/01/24 CXR: No acute cardiopulmonary process.
--- NOTE | 2024-07-04 13:27 | W.PN.HOSP.TC ---
Today's Communication/Plan
-
transition to amoxicillin 1g po q8H through 07/13/24.
f/u pcp outpt
Assessment / Plan
Assessment / Plan
General: Comfortable and Conversant
HEENT: Anicteric and Moist mucous membranes
Respiratory: Clear and Non Labored Respirations
Cardiac: S1/S2, Regular Rhythm and Tachycardia
GI: Soft and non tender
Rectal: Deferred by Provider
Genito-urinary: Clear Urine
Musculoskeletal: No Clubbing, No Cyanosis and No Edema
Skin: Warm and Dry
Neuro: Awake, Alert, Nonfocal/grossly intact and Other
Psych: Calm
Severe Sepsis
Bacteremia
-unclear source
-cont iv abx (D3) - at time of dc: transition to amoxicillin 1g po q8H through 07/13/24.
-ID consulted
-f/u cultures - repeat blood cultures ngtd
-ECHO with no vegetations
Mild Intermittent Asthma, recent acute exacerbation
-Continue DuoNeb QID and PRN
Seizure Disorder
-Continue Keppra
Acute on Chronic Metabolic Encephalopathy
Cognitive Impairment
-Monitor for mood/behavior changes during hospitalization
-Monitor with treatment above
-improving
MDS s/p Bone Marrow Transplant
-Monitor counts
DVT proph: Lovenox
Code Status: Full Code
More than 30 minutes spent in discharge including
Final examination of the patient
Summarizing hospital stay
Instructions for continuing care to all relevant caregivers
Preparation of discharge records, prescriptions, and referral forms
Total time spent (36 in minutes):
Anticipated Discharge: Today
Subjective/Interval History
-
Date of Service: July 04, 2024
slowly mentation is improving yet still AAOx2
Objective Data
-
Labs:
Laboratory Results
07/04/24
05:36
WBC 17.1 H
Hgb 12.9
Hct 37.2
Plt Count 239
Sodium 140
Potassium 3.2 L
Chloride 105
Carbon Dioxide 25
BUN 16
Creatinine 0.6
Glucose 95
Calcium 8.6
Total Bilirubin 0.9
AST 37 H
ALT 31
Alkaline Phosphatase 102
Vital Signs:
Vital Signs
Temp Pulse Resp BP Pulse Ox
98.6 F 80 16 152/90 95
07/04/24 11:44 07/04/24 12:28 07/04/24 12:28 07/04/24 11:44 07/04/24 12:28
I&O
07/03/24 07/04/24 07/05/24
06:59 06:59 06:59
Intake Total 1360 / 1360 660 / 660
Balance 1360 / 1360 660 / 660
Review of Systems
-
History Source: Patient
All other systems: Not reviewed unless documented
Data Reviewed
-
Diagnostic Radiology: Report Reviewed by me
CT Scan: Report Reviewed by me
Labs: Labs Reviewed by me
--- NOTE | 2024-07-04 13:40 | W.DS.TRANS ---
DC Summary - [facility]
-
Discharge Instructions:
Discharge Diagnosis/Procedures Streptococcus pneumoniae bacteremia without PNA
nor meningitis
Diet Low Cholesterol,Low Fat
Activity As tolerated
Blood Work cbc and cmp in 3-5 days with pcp
Instructions:
Stand-Alone Forms:
Changes to Home Medications: Yes
Discharge Medications:
DC Medications w/original date entered in [facility]
levetiracetam 250 mg tablet (Keppra) 250 mg PO BID 07/01/24
acetaminophen 325 mg tablet 650 mg (2 x 325 mg) PO Q6HPRN PRN mild pain/ fever>100.5F #150 tabs 07/04/24
amoxicillin 500 mg capsule 1,000 mg (2 x 500 mg) PO Q8H 10 days #60 caps 07/04/24
Home Medication Changes
acetaminophen 325 mg tablet 650 mg (2 x 325 mg) PO Q6HPRN PRN mild pain/ fever>100.5F #150 tabs 07/04/24
amoxicillin 500 mg capsule 1,000 mg (2 x 500 mg) PO Q8H 10 days #60 caps 07/04/24
Pending Results: No
--- NOTE | 2024-07-04 14:59 | CM ---
Addendum entered by Ly Dozier 07/04/24 15:04:
Called pts to obtain choices - LM on VM requesting return call
Plan - TBD - HH vs SNF
Original Note:
Spoke with pts - pt medically ready for discharge
reports he is noth feeling well, has ESRD and prefers his go to rehab prior to returning home
PT recs = HH - explained to would need a skilled need for rehab
He adamantly stated he can not bring home in present state
requesting update from physician
Dr Tejada updated - unsafe discharge and husbands request
--- NOTE | 2024-07-04 15:29 | PTCARENOTE ---
pt minimal/ x1 assist to the bathroom with rolling walker. pt is aaox2 but very forgetful with short term information. pt very anxious today for this nurse. redirection continued at this time.
[2024-07-04] MEDS: STERILE WATER FOR INJECTION 20 ML IV (16:28)
[2024-07-04] MEDS: ROCEPHIN 2000 MG IV (16:28)
[2024-07-04] MEDS: LOVENOX SC (17:21)
[2024-07-04] MEDS: DESYREL 12.5 MG PO (21:09)
--- NOTE | 2024-07-04 22:00 | PTCARENOTE ---
Pt continuously oob, approx every 15 minutes. Pt unsteady and impulsive getting oob, uncooperative when given directions. Pt c/o back pain, states 'I will never be able to sleep like this.' Medicated with prn tylenol without relief. Contacted Mary
Atul SEVERINO, trazadone ordered. Medication administered. Pt continues to get oob, voiding frequently. Bladder scanned for 133ml. Pt wanted to get into the chair states 'This bed is horrible, what am I in the slums?' Pt continues to be aggressive when
walking to bathroom, cursing at staff and not following directions. Mary SEVERINO notified. Ultram ordered. Pt made aware, medication given without issues. Pt back into bed, c/o being cold, states 'The air conditioning must be on, they did this to
me last time.' Warm blankets applied. Bed alarm and med sitter in place.
Pt's called the nurses station. Pt wanted updated on plan of care, per Pt's 'The doctor has not called me in 3 days, I will not let her be discharged if he doesn't call me'. Updated on current plan of care and medications
given. will pass onto day shift husbands concerns.
[2024-07-04] MEDS: ULTRAM 25 MG PO (22:09)
[2024-07-05] MEDS: TYLENOL 650 MG PO ×2 (04:17→13:15)
[2024-07-05 05:41] VITALS: BMI 25.4
[2024-07-05 07:25] LABS: Hematocrit 39.5 % (37.0-47.0); Hemoglobin 13.9 g/dL (12.0-16.0); Mean Corp Hgb Conc. 35.2 g/dL (33.0-37.0); Mean Corpuscular Hgb 29.5 pg (27.0-31.0); Mean Corpuscular Volume 83.9 fL (81.0-99.0); Mean Platelet Volume 10.8 fL (7.4-10.4); Platelet Count 262 10^3/uL (130-400); Red Blood Cell Count 4.71 10^6/uL (4.20-5.40); Red Cell Dist. Width 13.7 % (11.5-14.5); White Blood Cell Count 13.1 10^3/uL (4.8-10.8)
[2024-07-05] MEDS: DUONEB 3 ML INH (07:28)
[2024-07-05 07:31] LABS: ALT (SGPT) 60 U/L (0-35); AST (SGOT) 52 U/L (14-36); Albumin 3.7 g/dl (3.5-5.0); Alkaline Phosphatase 113 U/L (38-126); Blood Urea Nitrogen 11 mg/dl (7-17); Calcium 9.1 mg/dl (8.4-10.2); Carbon Dioxide 27 mmol/L (22-30); Chloride 102 mmol/L (98-107); Estimated Creatinine Clearance 71 ml/min; Glucose 104 mg/dl (70-99); Potassium 3.5 mmol/L (3.5-5.1); Sodium 139 mmol/L (135-145); Total Bilirubin 1.4 mg/dl (0.2-1.3); eGFR > 60.00
[2024-07-05] MEDS: KEPPRA 250 MG PO (07:36)
[2024-07-05] MEDS: ULTRAM 25 MG PO (07:41)
[2024-07-05 08:01] VITALS: BP 162/99
--- NOTE | 2024-07-05 11:55 | W.PN.ID1 ---
Date of Service
Date of Service: July 05, 2024
Today's Communication
transition ceftriaxone (d4) to amoxicillin 1g po q8H through 07/13/24.
Assessment / Plan
# Streptococcus pneumoniae bacteremia without PNA nor meningitis
# Fever (resolved)
# Leukocytosis resolving
- repeat blood cx neg
- TTE no gross vege
- Can transition ceftriaxone (d4) to amoxicillin 1g po q8H through 07/13/24.
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
hx MDS s/p bone marrow transplant
Seizure disorder
Mild cognitive impairment
HTN
Mild asthma
Dyslipidemia
Anxiety/depression
Appendectomy
Bunionectomy
Chief Complaint
-: Bacteremia
Subjective / Review of Systems
Feels well. No specific complaints.
Vital Signs / Physical Exam
Vital Signs
Vital Signs
Temp Pulse Resp BP Pulse Ox
97.9 F 91 17 162/99 95
07/05/24 08:01 07/05/24 08:01 07/05/24 08:01 07/05/24 08:01 07/05/24 08:01
Physical Exam
Constitutional: No Acute Distress and Comfortable
Cardiovascular: Regular Rate and S1/S2
Pulmonary: Clear
Gastrointestinal: Soft, Non Tender and Non Distended
Extremities: Negative Edema
Neurological: Awake and Alert
Objective Data
Lab Data
Lab Results
07/05/24 06:24
07/05/24 06:24
Estimated Creat Clear 71 ml/min 07/05/24 06:24
Lactic Acid 1.4 mmol/L (0.7-2.0) 07/02/24 01:40
Total Bilirubin 1.4 mg/dl (0.2-1.3) H 07/05/24 06:24
AST 52 U/L (14-36) H 07/05/24 06:24
ALT 60 U/L (0-35) H 07/05/24 06:24
Alkaline Phosphatase 113 U/L (38-126) 07/05/24 06:24
Most recent labs reviewed.
Micro Results:
07/03/24 11:22 Blood Culture - Preliminary
Blood/Venous No Growth in 48 hours- Final report to follow
07/02/24 09:32 Blood Culture - Preliminary
Blood/Venous No Growth in 72 hours- Final report to follow
07/01/24 11:09 Blood Culture - Final
Blood/Venous Streptococcus pneumoniae
Gram Stain - Final
07/01/24 11:08 Blood Culture - Final
Blood/Venous Streptococcus pneumoniae#2
Streptococcus pneumoniae
Gram Stain - Final
07/04/24 07:10 C. difficile GDH Antigen & Toxins - Final
Feces/Stool Negative for toxigenic C.difficile
07/01/24 23:27 MRSA Screen - Final
Nose No Methicillin Resistant Staphylococcus aureus isolated.
07/01/24 11:07 Influenza Types A & B (NOVA) - Final
Nasal Swab Negative for Influenza A & B, NAAT
Negative results must be combined with clinical observations
and patient history.
Nucleic Acid Amplification test (NAAT)performed on the
[employer] platform.
07/01/24 Chest/A/P CT: Evidence of previous right upper lobectomy. No evidence of pneumonia.
07/01/24 CXR: No acute cardiopulmonary process.
--- NOTE | 2024-07-05 12:15 | PTCARENOTE ---
Walked patient from her room to the nurses station. Steady with the RW on her way to the nurses station. Patient took a break at the nurses station and leaned on the counter there. When she turned to head back to her room, she was unsteady as she
tried to move her walker in front of her and grab the handle with her left hand. As we got back into her room, she requested to sit in the chair. Patient did not wait for nurse to remove bunched up blanket from the chair before she plopped onto
the chair. She immediately stated that she was going to throw up. Nurse talked her through some breathing and then Physical Therapy came to work with her. The patient did not get sick. Patient provided with some fresh water.
[2024-07-05] MEDS: AMOXIL 1000 MG PO (13:11)
[2024-07-05] MEDS: DUONEB INH (13:19)
--- NOTE | 2024-07-05 13:27 | W.PN.HOSP.TC ---
Today's Communication/Plan
-
DC
Assessment / Plan
Assessment / Plan
Severe Sepsis
Streptococcus pneumonia bacteremia without pneumonia or meningitis
-unclear source. Resolved sepsis parameters.
-transition to amoxicillin 1g po q8H through 07/13/24.
-ID following
-f/u cultures - repeat blood cultures ngtd
-ECHO with no vegetations
Abnormal LFTs -mild elevations noted. Patient without any GI symptoms. Abdomen nontender. Tolerating diet. Unclear if related to sepsis. Follow-up as outpatient if persistent elevation to consider further evaluation.
Mild Intermittent Asthma, recent acute exacerbation
-Currently without any active bronchospasm
Seizure Disorder
-Continue Keppra
Acute on Chronic Metabolic Encephalopathy
Cognitive Impairment
-Monitor for mood/behavior changes during hospitalization - no agitation
-Monitor with treatment above
MDS s/p Bone Marrow Transplant
-Monitor counts
DVT proph: Lovenox
Code Status: Full Code
Medically stable for discharge.
Discussed with the and went over the diagnosis, treatment plan and follow-up plan.
More than 30 minutes spent in discharge including
Final examination of the patient
Summarizing hospital stay
Instructions for continuing care to all relevant caregivers
Preparation of discharge records, prescriptions, and referral forms
Total time spent - 35 min
Anticipated Discharge: Today
Subjective/Interval History
-
Date of Service: July 05, 2024
Patient feels improved. Denies any fever chills.
No nausea vomiting or diarrhea.
Denies shortness of breath or chest pain.
Feels improved on her feet as well and would like to go home then rehab. She did good with PT OT recommending home therapy.
Objective Data
-
Labs:
Laboratory Results
07/05/24
06:24
WBC 13.1 H
Hgb 13.9
Hct 39.5
Plt Count 262
Sodium 139
Potassium 3.5
Chloride 102
Carbon Dioxide 27
BUN 11
Creatinine 0.6
Glucose 104 H
Calcium 9.1
Total Bilirubin 1.4 H
AST 52 H
ALT 60 H
Alkaline Phosphatase 113
Vital Signs:
Vital Signs
Temp Pulse Resp BP Pulse Ox
97.9 F 91 17 162/99 95
07/05/24 08:01 07/05/24 08:01 07/05/24 08:01 07/05/24 08:01 07/05/24 08:01
I&O
07/04/24 07/05/24 07/06/24
06:59 06:59 06:59
Intake Total 660 / 660 900 / 900
Balance 660 / 660 900 / 900
Review of Systems
-
EENT: Denies Sore Throat
Respiratory: Denies Cough
Neuro: Denies Dizzy
Physical Exam
-
General: No Apparent Distress
Respiratory: Non Labored Respirations; Negative Wheezes, Crackles or Accessory Resp Muscle Use
Cardiac: Regular Rhythm and S1/S2
GI: Soft
Neuro: Awake, Alert and Oriented
Psych: Calm
Data Reviewed
-
Labs: Labs Reviewed by me
--- NOTE | 2024-07-05 14:15 | CM ---
Reviewed the chart notes and spoke with the patient at the bedside and left voice message for the spouse. IMM reviewed. The patient is being discharged to home with [facility]. Patient's spouse will provide transportation. CM continues to be
available to patient/family and is monitoring medical plan for needs at discharge.
Plan: Discharge to home with VN services.
[2024-07-05 15:17] VITALS: BP 162/98
[2024-07-05 16:02] VITALS: BP 150/82
--- NOTE | 2024-07-05 17:39 | W.DCSUMMARY ---
Discharge Summary
Discharge Data
Date of Admission: 07/01/24
Date of Discharge: 07/05/24
-
Pending Results: No
Hospital Course
Primary diagnosis:
Severe Sepsis
Streptococcus pneumonia bacteremia without pneumonia or meningitis
Abnormal liver function tests
Secondary diagnosis:
Asthma
Seizure disorder
Myelodysplastic syndrome status post bone marrow transplant
Cognitive impairment
Essential hypertension
Hyperlipidemia
Hospital course:
Patient presented to home with fever and change in mental status discovered to be septic. She was bacteremic with Streptococcus pneumoniae but there was no clear evidence of pneumonia or meningitis. Was seen by ID. Was started on ceftriaxone.
Had an echocardiogram which showed no evidence of infective carditis. Repeat blood cultures were sterile. When she was clinically stable she was switched to oral amoxicillin to complete 12 07/13/2024. Was mild bilirubin and transaminitis
elevation. No GI symptoms. Abdomen benign. Tolerating diet. Unclear if related to sepsis. Advised to follow-up with repeat a CMP in a week.
Consultants on board:
Infectious disease-Priyanka Hennessy
Discharge Plan
-
Patient Disposition: Home (Routine Discharge)
Discharge Diagnosis/Procedures: Streptococcus pneumoniae bacteremia without PNA nor meningitis
Condition: Fair
Diet: Low Fat and Low Cholesterol
Activity: As tolerated
Blood Work: cmp in 3-5 days with pcp
Other Services: PT and OT
Referrals:
Jean Kathleen MD [Family Provider] - in less than 1 week
Prescriptions:
New
acetaminophen 325 mg Tablet
650 mg PO Q6HPRN PRN (Reason: mild pain/ fever>100.5F) Qty: 150 0RF
amoxicillin 500 mg capsule
1,000 mg PO Q8H 10 Days Qty: 60 0RF
Rx Instructions:
through 07/13/24
Continued
levetiracetam [Keppra] 250 mg Tablet
250 mg PO BID
Discharge Orders:
Discharge Patient (As Directed); Ordered 07/05/24
Ordered By: Bhavesh Macdonald
Discharge Date and Time
Discharge Date/Time: 07/05/24 16:10
Print Language: SPANISH
== END 2024-07-05 16:10 | disposition home health service (06) | DRG 871 ==
LOC: 2 NORTH 15:15
PROVIDERS: Internal Medicine; Physician Assistant; Physician Assistant Medical; ADMITTING PHYSICIAN Internal Medicine; ATTENDING PHYSICIAN Internal Medicine; CONSULT PHYSICIAN Internal Medicine Infectious Disease; EMERGENCY PHYSICIAN Emergency Medicine; FAMILY PHYSICIAN Internal Medicine Geriatric Medicine
DX: A40.3 Sepsis due to Streptococcus pneumoniae (principal); G92.8 Other toxic encephalopathy; R65.20 Severe sepsis without septic shock; Z94.81 Bone marrow transplant status; F03.93 Unspecified dementia, unspecified severity, with mood disturbance; F03.94 Unspecified dementia, unspecified severity, with anxiety; D46.9 Myelodysplastic syndrome, unspecified; I10 Essential (primary) hypertension; E78.5 Hyperlipidemia, unspecified; R74.01 Elevation of levels of liver transaminase levels; F32.A Depression, unspecified; R56.9 Unspecified convulsions; J40 Bronchitis, not specified as acute or chronic; J45.20 Mild intermittent asthma, uncomplicated
CPT/HCPCS: 71045; 71046; 71275; 74177; 80048; 80053; 81003; 83605; 84145; 84484; 85025; 85027; 85379; 87040; 87070; 87077; 87186; 87205; 87324; 87449; 87502; 87811; 93005; 93306; 94640; 96361; 96365; 97110; 97162; 97167; 99285; Q9967

== ENCOUNTER 2025-02-26 18:10 | Emergency (ER) | payer MEDICARE, BC, SELFPAY ==
[2025-02-26 18:29] VITALS: BP 195/122
--- NOTE | 2025-02-26 20:47 | ED.GENMED ---
History of Present Illness
General
Chief Complaint: Head Injury
Time Seen by Provider: 02/26/25 20:45
History of Present Illness
History of Present Illness:
FOCUSED PAST MEDICAL HISTORY
- The patient has a history of dementia and seizures on Keppra, MDS status post bone marrow transplant
REVIEW OF OLD RECORDS
- The patient was admitted here in June of this year with severe sepsis and was found to have strep pneumo bacteremia
Note:
CHIEF COMPLAINT(S)
Fall with head injury.
HISTORY OF PRESENT ILLNESS
The patient is an 80-year-old female who sustained a fall while exiting a vehicle today. According to her , she was getting out of the passenger side when she fell, hitting the back of her head. A computed tomography (CT) scan of the brain
was conducted, which showed no signs of intracranial hemorrhage or skull fracture. The patient does not report any neck pain. There was significant external bleeding observed, which is common with scalp injuries. The physical examination reveals the
presence of abrasions on the scalp, but there are no lacerations requiring sutures or aliosn. The patient is not on any anticoagulant medications.
PHYSICAL EXAM
- General: Well appearing in no distress
- Head: Abrasion with some scant amount of blood noted to the right occipital region of the scalp
- C-spine: No midline c-spine tenderness; normal AROM of C-spine
- Back: Normal AROM thoracolumbar spine
- HEENT: Moist oral mucosa, no blood
- Cardiovascular: No murmurs, normal heart rate, regular rhythm, No chest wall tenderness
- Pulmonary: No respiratory distress, breath sounds are clear and equal
- Abdomen: Soft with no peritoneal signs, no tenderness
- Neurologic: Fair strength all extremities, no coordination deficits
- Psychiatric: The patient has evidence of dementia and is not oriented to month, she is a limited historian
- Extremities: Nontender, no edema, moves all extremities equally
- Skin: There is a skin tear noted measuring approximately 2 cm just distal and lateral to the right knee
EXTERNAL RECORDS REVIEWED
- CT scan of the brain shows no intracranial hemorrhage or skull fracture.
SUMMARY OF ENCOUNTER
The patient was evaluated in the emergency department due to a fall resulting in a scalp injury. A CT scan of the brain was performed, showing no intracranial injuries. The physical exam revealed abrasions on the scalp with no need for stitching.
Based on the findings, no acute intracranial injury was identified, and the patients neck evaluation did not reveal any concerning signs.
DIFFERENTIAL DIAGNOSIS
The Differential Diagnosis includes, in no particular order and is not limited to:
- Scalp laceration
- Concussion
- Subdural hematoma
- Epidural hematoma
- Skull fracture
- Cervical spine injury
- Contusion
- Intracranial hemorrhage
- Syncope
- Benign paroxysmal positional vertigo (BPPV)
MEDICAL DECISION MAKING
- Complexity of Data Reviewed: The CT scan findings were reviewed, confirming no acute intracranial injury.
DATA
- Category 1: CT scan of the brain reviewed, showing no intracranial hemorrhage or skull fracture.
DIAGNOSIS
- Scalp abrasion with fall (ICD-10: S00.03)
Disposition:
SUMMARY OF ENCOUNTER
The patient, an 80-year-old female, was evaluated in the emergency department after a fall while exiting a vehicle. She hit the back of her head, resulting in a scalp injury with abrasions, but no lacerations requiring sutures. A CT scan of the
brain was performed, and it showed no signs of intracranial hemorrhage or skull fracture. Given the findings and absence of neck pain or concerning neck injury signs, it was determined there were no acute intracranial injuries.
DISPOSITION
Discharge.
ASSESSMENT
Scalp abrasion from a fall. No acute intracranial injury identified on CT.
PLAN
Update tetanus status.
INDEPENDENT REVIEW OF LABS AND INTERPRETATION OF TESTS
My independent interpretation of the CT scan of the brain shows no intracranial hemorrhage or skull fracture.
PATIENT EDUCATION AND COUNSELING
The patient was informed about the findings of the CT scan and reassured regarding the absence of intracranial injuries. Advised to monitor for any new or worsening symptoms and to seek medical attention if they occur.
FOLLOW-UP INSTRUCTIONS
Please call the office immediately to schedule a follow-up visit.
MEDICAL DECISION MAKING
- Complexity of Data Reviewed: Differential diagnoses included scalp laceration, concussion, subdural hematoma, epidural hematoma, skull fracture, cervical spine injury, contusion, intracranial hemorrhage, syncope, and benign paroxysmal positional
vertigo (BPPV).
- Data:
Category 1:
Non-emergency department records reviewed. External record reviewed: The CT scan showed no intracranial hemorrhage or skull fracture.
Category 2:
Clinical information was obtained from an independent historian.
- Risk:
Consideration of Admission/Observation: Escalation of care including admission/observation was considered given the complexity and risk of the patients presenting complaint, exam findings, and/or their underlying comorbidities. However, ultimately,
I feel the patient is safe for outpatient management with close follow-up. Reasoning: Work-up reassuring, does not reveal any acute life/organ-threatening processes, patients symptoms well controlled upon reevaluation, reexamination is reassuring,
vitals are stable, patient agreeable with discharge, reliable for follow-up.
DIAGNOSIS
Scalp abrasion with fall (ICD-10: S00.03).
Skin tear right lower extremity
RADIOLOGY
- CAT scan of the brain shows no acute intracranial abnormality, small right parietal scalp hematoma noted.
Past History
Past History
ED Past Medical History: Cancer, GERD and Seizures
ED Past Surgical History: Appendectomy, Orthopedic and Other (bone marrow transplant)
Social History
Tobacco: Non-smoker
Alcohol: None
Drug: None
Personal: Other
Living: with family
Employment: Other
Family History
Family History: Other
Phy Exam
Physical Exam
Physical Exam:
See HPI
Course
Orders/Labs/Results
Orders:
Orders
02/26/25 18:33
CT Head W/o Iv Contrast Urgent
Comment:
Reason For Exam: fall with head injury
02/26/25 20:56
Tetanus/Diphth/Acelpertussis [Adacel] 0.5 ml IM .ONCE ONE
Vital Signs
Initial and Last Documented VS:
Initial Vital Signs
Temp Pulse Resp BP Pulse Ox
36.5 C 94 18 195/122 96
02/26/25 18:29 02/26/25 18:29 02/26/25 18:29 02/26/25 18:29 02/26/25 18:29
Last Documented Vital Signs
Temp Pulse Resp BP Pulse Ox
36.5 C 94 18 195/122 96
02/26/25 18:29 02/26/25 18:29 02/26/25 18:29 02/26/25 18:29 02/26/25 20:49
*Pulse Oximetry
SaO2: 96
Oxygen Mode of Delivery: Room air
Patient hypoxic: no
*Critical Care Note
Total Time (30-74mins, 75-104mins- exclusive of procedures): Not Applicable
ED Attending Note
-
Portions of this chart may have been created with voice recognition software.� Occasional wrong word or��sound alike� substitutions may have occurred due to the inherent limitations of voice recognition software.
Discharge Plan
Departure
Patient Disposition: Home (Routine Discharge)
Date of Disposition: 02/26/25
Time of Disposition: 20:56
Patient with high blood pressure during this ER visit?: Yes
Discharge Problem:
Abrasion of scalp
Instructions: Head Injury in Adults (DC), BLOOD PRESSURE
Prescriptions:
No Action
levetiracetam [Keppra] 250 mg Tablet
250 mg PO BID
acetaminophen 325 mg Tablet
650 mg PO Q6HPRN PRN (Reason: mild pain/ fever>100.5F) Qty: 150 0RF
amoxicillin 500 mg capsule
1,000 mg PO Q8H 10 Days Qty: 60 0RF
Rx Instructions:
through 07/13/24
Referrals:
Jean Kathleen MD [Family Provider, Internal Medicine]
Activity Restrictions/Additional Instructions:
Blood pressure is elevated. I recommend you follow-up with your primary care doctor for reassessment of the blood pressure. CAT scan of the brain shows no internal bleeding in the head.
Interventions
Interventions:
*Risk Screen - Suicide Last Done: 02/26/25 18:29
*General Assessment Last Done: 02/26/25 18:29
*ED COVID-19 Vaccine History Last Done: 02/26/25 18:29
Discharge Date and Time
Print Language: KITTITIAN
[2025-02-26] MEDS: ADACEL 0.5 ML IM (20:58)
== END 2025-02-26 21:17 | disposition home or self-care (01) ==
LOC: EMR 18:10
PROVIDERS: EMERGENCY PHYSICIAN Emergency Medicine; FAMILY PHYSICIAN Internal Medicine Geriatric Medicine
DX: S00.01XA Abrasion of scalp, initial encounter (principal); W01.10XA Fall on same level from slipping, tripping and stumbling with subsequent striking against unspecified object, initial encounter; R03.0 Elevated blood-pressure reading, without diagnosis of hypertension; F03.90 Unspecified dementia, unspecified severity, without behavioral disturbance, psychotic disturbance, mood disturbance, and anxiety; K21.9 Gastro-esophageal reflux disease without esophagitis; Z23 Encounter for immunization; Z94.81 Bone marrow transplant status
CPT/HCPCS: 99284; 90471; 70450; 90715

== ENCOUNTER 2025-04-16 15:10 | Inpatient (IN) | payer MEDICARE, BC, SELFPAY ==
[2025-04-16 11:27] VITALS: BMI 26.7
[2025-04-16 11:31] VITALS: BP 178/106
[2025-04-16 11:58] LABS: Urine Character Clear (Clear)
[2025-04-16 12:03] LABS: Hematocrit 46.4 % (37.0-47.0); Hemoglobin 15.9 g/dL (12.0-16.0); Mean Corp Hgb Conc. 34.3 g/dL (33.0-37.0); Mean Corpuscular Volume 83.8 fL (81.0-99.0); Nucleated Red Blood Cells % 0 %; Platelet Count 257 10^3/uL (130-400); Red Cell Dist. Width 13.4 % (11.5-14.5)
[2025-04-16 12:13] VITALS: BP 168/111
[2025-04-16 12:26] LABS: ALT (SGPT) 25 U/L (0-35); AST (SGOT) 25 U/L (14-36); Albumin 4.3 g/dl (3.5-5.0); Alkaline Phosphatase 93 U/L (38-126); Blood Urea Nitrogen 12 mg/dl (7-17); Calcium 9.8 mg/dl (8.4-10.2); Carbon Dioxide 28 mmol/L (22-30); Chloride 101 mmol/L (98-107); Estimated Creatinine Clearance 53 ml/min; Glucose 118 mg/dl (70-99); Potassium 3.7 mmol/L (3.5-5.1); Sodium 137 mmol/L (135-145); Total Protein 8.0 g/dl (6.3-8.2); eGFR > 60.00
[2025-04-16 12:32] LABS: Urine Urothelial Cell 0-2 /LPF (FEW)
[2025-04-16 12:34] LABS: Urine Red Blood Cell 0-2 /HPF (0-2); Urine White Cell 0-2 /HPF (0-5)
[2025-04-16 13:02] LABS: COVID-19 Antigen Negative (Negative)
[2025-04-16] MEDS: TYLENOL 1000 MG PO (13:28)
--- NOTE | 2025-04-16 13:56 | ED.GENMED ---
History of Present Illness
General
Chief Complaint: Weakness
Source: patient and spouse
Time Seen by Provider: 04/16/25 11:41
History of Present Illness
History of Present Illness:
Note:
CHIEF COMPLAINT(S)
Fall and weakness.
HISTORY OF PRESENT ILLNESS
The patient is an 80-year-old female who presented following a fall. According to the information provided by EMS, she initially fell and upon attempting to rise, fell again. Her spouse reported that she has been experiencing weakness recently. In
the past few weeks, she was treated for a urinary tract infection, which her spouse believes may not have been resolved. The patient is experiencing a fever with a temperature of 100.7�F rectally and reported feeling shortness of breath when walking
to the stretcher, although she is able to ambulate to some extent. During the evaluation, the patient did not report any pain, nor signs of nausea. There are no complaints of chest or abdominal pain. She mentioned feeling like she might have a
slight fever. no ADAN. no neck pain
PAST MEDICAL AND SURGICAL HISTORY
History of urinary tract infection.
SOCIAL DETERMINANTS AFFECTING HEALTH
The patient has a history of Alzheimers disease.
REVIEW OF SYSTEMS
- General: Reports feeling unwell with a fever.
- Respiratory: Slight shortness of breath on exertion.
- No pain, nausea, chest pain, or abdominal pain reported.
PHYSICAL EXAM
General: Alert but confused, cooperative.
Skin: Warm, dry.
Head: Normocephalic, atraumatic.
Neck: Supple, trachea midline.
Eyes, Ears, Nose, Mouth, and Throat: Oral mucosa moist.
Cardiovascular: Heart rhythm regular, no edema in lower extremities.
Respiratory: Respirations are non-labored, oxygen saturation at 94% on room air.
Gastrointestinal: Abdomen is soft, non-tender.
Back: Normal range of motion, Normal alignment.
Musculoskeletal: Normal range of motion, normal strength.
Neurological: Awake, alert, but noted confusion due to Alzheimers. no focal deficits
Psychiatric: Cooperative, appropriate mood and affect.
PLAN
1. Administer Tylenol to manage fever.
2. Perform a urinalysis to check for urinary tract infection recurrence.
3. Obtain a chest film for further evaluation.
DIFFERENTIAL DIAGNOSIS
The Differential Diagnosis includes, in no particular order and is not limited to:
1. Urinary tract infection
2. Dehydration
3. Respiratory infection (e.g. pneumonia)
4. Hypoglycemia
5. Anemia
6. Congestive heart failure
7. Electrolyte imbalance
8. Medication side effects
9. Sepsis
10. Alzheimers disease exacerbation
Disposition:
SUMMARY OF ENCOUNTER
The patient is an 80-year-old female who presented to the emergency department with generalized weakness, confusion, and a low-grade fever. She has a history of dementia and was recently treated for a urinary tract infection (UTI). Her
expressed concern about her ongoing weakness and confusion. Upon review of [facility] lab work, there was no evidence of a UTI, the white blood cell count was normal, hemoglobin levels were normal, and the basic metabolic panel (BMP) was also normal. A
chest X-ray was conducted, showing no infiltrates. Given the patients current symptoms and history of falls, she was managed with observation away from antibiotics at this time, and antipyretics were provided. Due to her conditions complexity and
potential complications, the decision was made to admit her for close monitoring and to await blood culture results.
DISPOSITION
Admit for close monitoring.
PLAN
1. Continue observation off antibiotics.
2. Administer antipyretics as needed for fever management.
3. Admit for close monitoring and await blood culture results.
INDEPENDENT REVIEW OF LABS AND INTERPRETATION OF TESTS
My independent review of urinary analysis reveals no evidence of a urinary tract infection.
My independent review of CBC indicates a normal white blood cell count and normal hemoglobin levels.
My independent review of BMP indicates normal metabolic function.
ADDITIONAL TESTING AND IMAGING CONSIDERED
Chest X-ray was considered and performed to rule out respiratory infection or infiltrates.
MEDICATION RECONCILIATION
Antipyretics administered for fever management.
MEDICAL DECISION MAKING
- Number and Complexity of Problems Addressed: Chronic conditions affecting care include dementia and a recent history of urinary tract infection. Differential Diagnosis includes:
1. Urinary tract infection
2. Dehydration
3. Respiratory infection (e.g., pneumonia)
4. Hypoglycemia
5. Anemia
6. Congestive heart failure
7. Electrolyte imbalance
8. Medication side effects
9. Sepsis
10. Alzheimers disease exacerbation
- Data:
- Category 1: Tests and documents reviewed include urinalysis, CBC, BMP, and chest X-ray.
- My independent interpretation of the chest X-ray reveals no infiltrates.
- Risk:
- Due to the patients present conditions and multiple comorbidities, including history of dementia and the recent fall risk, admission for closer observation and awaiting further test results, including blood cultures, were deemed necessary for her
safety.
DIAGNOSIS
1. Generalized weakness (R53.1)
2. Confusion (R41.0)
3. Fever, unspecified (R50.9)
4. Dementia with behavioral disturbance (F02.81)
Past History
Past History
ED Past Medical History: Cancer, GERD and Seizures
ED Past Surgical History: Appendectomy, Orthopedic and Other (bone marrow transplant)
Social History
Tobacco: Non-smoker
Alcohol: None
Drug: None
Personal: Other
Living: with family
Employment: Other
Family History
Family History: Other
Phy Exam
Physical Exam
Physical Exam:
.
Sepsis
Sepsis Screening
Sepsis Assessment: Sepsis Ruled Out
Sepsis Screen
Sepsis Screen: Sepsis Ruled Out
Date: 04/17/25
Time: 07:30
Course
Orders/Labs/Results
Orders:
Orders
04/16/25 11:28
EKG [Electrocardiogram (*1)] Urgent
Reason for Study: Fatigue / Weakness
04/16/25 11:29
EKG- Treatment ONCE
04/16/25 11:44
Straight cath- Treatment ONCE
04/16/25 11:46
CR Chest - 2 Views Urgent
Comment:
Reason For Exam: fever
04/16/25 11:47
Complete Blood Count/With Diff Urgent
Comprehensive Metabolic Panel Urgent
Lactate Level [Lactic Acid] Urgent
Urinalysis Reflex To Culture Urgent
Date Specimen was Collected: 04/16/25
Time Specimen was Collected: 11:30
Comment: straight cath
Urine Microscopic Reflex Cult Urgent
Blood Culture Q20M
BRITTANI Source: Blood/Venous
Specimen Description:
Comment: Urgent from separate sites. If patient screens positive for possible sepsis
Blood Culture Q20M
BRITTANI Source: Blood/Venous
Specimen Description:
Comment: Urgent from separate sites. If patient screens positive for possible sepsis
04/16/25 12:37
COVID-19 Antigen Urgent
Source: Nasal Swab
04/16/25 13:26
Acetaminophen [Tylenol] 1,000 mg .ROUTE .STK-MED ONE
04/16/25 13:28
Acetaminophen [Tylenol] 1,000 mg PO NOW STA
Acetaminophen [Tylenol] 1,000 mg PO NOW STA
04/16/25 14:01
CT Head W/o Iv Contrast Urgent
Comment:
Reason For Exam: weakness, fall
04/16/25 14:22
Admit/Transfer Patient As Directed
Co-Sign Provider:
Level of Care: Inpatient admission
Assign to:: Medical/Surgical
Physician / Group: kathleen
Diagnosis: fall
Reason for Hospitalization: fall, fever
Expected length of stay greater than two midnights?: Yes
ELOS- Estimated Length of Stay in days: 2
I certify the patient meets the requirements for IP care: Yes
PRN Pain Medication Management As Directed
May give lesser potent ordered pain med per pt: Yes
preference::
Protocol:: Medication orders for pain may be administered in a
manner that supports deferring to patient preference
when the pt is:
- Requesting an ordered lesser potent pain medication.
Least to most potent pain medications are defined
as: acetaminophen < NSAID < tramadol < opioids
(morphine, oxycodone, hydromorphone).
- Requesting a lesser dose of the same medication IF
ORDERED.
- Requesting a less intrusive route of administration
if both routes are prescribed by the provider (PO <
IV).
04/16/25 14:23
Code Status As Directed
Resuscitation Status: Full Code
04/16/25 14:39
Sterile Water [Sterile Water For Injection] 10 ml .ROUTE .STK-MED ONE
04/16/25 14:41
Influenza A+B Rapid Molecular Urgent
BRITTANI Source: Nasal Swab
Specimen Description:
04/16/25 Dinner
Regular
At Your Request: Full Participation
Flush (0.9% Sodium Chloride) [Flush (Nss)] See Dose Instructions IV PER PROTOCOL
04/16/25 15:14
0.9% Sodium Chloride 1000 ml [Nss] 1,000 ml IV 80 mls/hr
Acetaminophen [Tylenol] 650 mg PO Q4HPRN PRN
04/16/25 15:14
Activity As Directed
Activity Level: As Tolerated
Vital Signs As Directed
Frequency: Per unit guidelines
DX Deep Vein Thrombosis Video Routine
04/16/25 16:00
CefTRIAXone [Rocephin] 1,000 mg IV Q24H
Sterile Water [Sterile Water For Injection] 10 ml IV Q24H
04/16/25 20:00
Heparin 5,000 units SC Q12
04/17/25 05:52
Complete Blood Count/With Diff IN AM
Comprehensive Metabolic Panel IN AM
Abnormal Lab Results
04/16/25
11:47
RBC 5.54 H 10^6/uL
(4.20-5.40)
Absolute Monos (auto) 1.1 H 10^3/uL
(0.1-0.6)
Monocytes % 14.4 H %
(1.7-9.3)
Glucose 118 H mg/dl
(70-99)
Urine Bacteria (Reflex) Few A
(Negative)
Urine Albumin (Reflex) 1+ A
(Neg - Trace)
04/16/25 11:47
04/16/25 11:47
Vital Signs
Initial and Last Documented VS:
Initial Vital Signs
Temp Pulse Resp BP Pulse Ox
100.7 F H 96 32 178/106 94
04/16/25 11:31 04/16/25 11:31 04/16/25 11:31 04/16/25 11:31 04/16/25 11:31
Last Documented Vital Signs
Temp Pulse Resp BP Pulse Ox
98.6 F 99 24 163/99 95
04/16/25 23:20 04/17/25 00:34 04/16/25 23:20 04/17/25 00:34 04/16/25 23:20
*Pulse Oximetry
SaO2: 94
Oxygen Mode of Delivery: Room air
Patient hypoxic: no
*EKG
Interpreted by ED Provider?: Yes
Interpretation: abnormal
Rate: normal
Rhythm: sinus
Horse Shoe: left axis deviation
QRS Pattern: normal QRS
Ischemia: no ischemia
*Critical Care Note
Total Time (30-74mins, 75-104mins- exclusive of procedures): Not Applicable
ED Attending Note
-
Portions of this chart may have been created with voice recognition software.� Occasional wrong word or��sound alike� substitutions may have occurred due to the inherent limitations of voice recognition software.
Discharge Plan
Departure
Patient Disposition: Admit
Date of Disposition: 04/16/25
Time of Disposition: 13:58
Admit to: Med/Surg
Presentation/result/management discussed w/ accepting MD/DO: Hospitalist
Discharge Problem:
Weakness, Fever
Interventions
Interventions:
*General Assessment Last Done: 04/16/25 11:39
*Neglect/Abuse Screening Last Done: 04/16/25 11:27
*ED- Fall Risk Assessment Last Done: 04/16/25 11:28
*ED Influenza Vaccine History Last Done: 04/16/25 11:28
*Nursing Disposition Last Done: 04/16/25 20:20
ED- Cardiac Assessment Last Done: 04/16/25 11:38
ED- Neurological Assessment Last Done: 04/16/25 11:38
ED- Pulmonary Assessment Last Done: 04/16/25 11:38
Discharge Date and Time
Discharge Date/Time: 04/16/25 20:20
--- NOTE | 2025-04-16 14:25 | HPS.HSE ---
Family Physician
-
Family Physician: Jean Kathleen
Chief Complaint
-
fall
History of Present Illness
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 She
initially fell and upon attempting to rise she fell again. Her spouse states that she has been feeling weak recently. She was treated for urinary tract infection few weeks ago which spouse believes is not resolved. Patient has fever 100.7
recently and shortness of breath but walking to the stretcher. Did not have any nausea. No chest pain or abdominal pain. No headache or neck pain. No urinary symptoms. No rashes on the body. No chest pain or palpitations or dizziness or
syncope.
Recent admitted in June for Streptococcus bacteremia without any clear source. She was treated with ceftriaxone. She had echocardiogram which was unremarkable.
She denies smoking or alcohol use.
Medical History
Past Medical History
Past Medical History: Reports Other (asthma, seizure disorder, myelodysplastic syndrome status post bone marrow transplant, cognitive impairment, hypertension, hyperlipidemia, Streptococcus pneumonia bacteremia)
Past Surgical History: Reports None
Social History
Tobacco: Non-smoker
Alcohol: None
Drug: None
Family History
Family History: Not pertinent
Allergies / Home Medications
Allergies reflects when Allergies were last updated in [employer].
Home Medications with original date entered in [facility] [employer]
Allergy/Medication List:
Allergies
Allergy/AdvReac Type Severity Reaction Status Date / Time
filgrastim (From Neupogen) Allergy Unknown Verified 02/26/25 18:32
levofloxacin (From Levaquin) Allergy Unknown Verified 02/26/25 18:32
Milk Containing Products Allergy cough Verified 02/26/25 18:32
(Dairy) (Milk Containing
Products)
Sulfa (Sulfonamide Allergy Unknown Verified 02/26/25 18:32
Antibiotics)
Home Medications
levetiracetam 250 mg tablet (Keppra) 250 mg PO BID 07/01/24
acetaminophen 325 mg tablet 650 mg (2 x 325 mg) PO Q6HPRN PRN mild pain/ fever>100.5F #150 tabs 07/04/24
amoxicillin 500 mg capsule 1,000 mg (2 x 500 mg) PO Q8H 10 days #60 caps 07/04/24
Review of Systems
-
History Source: Patient
A 12 point ROS was completed and negative except as noted: Yes
Constitutional: Reports No Symptoms
EENT: Reports No Symptoms
Respiratory: Reports No Symptoms
Cardiac: Reports No Symptoms
Abdomen/GI: Reports No Symptoms
: Reports No Symptoms
Musculoskeletal: Reports No Symptoms
Skin: Reports No Symptoms
Neurological: Reports No Symptoms
Endocrine: Reports No Symptoms
Hematologic/Lymphatic: Reports No Symptoms
Psych: Reports No Symptoms
Physical Exam
Vital Signs
Vital Signs
Temp Pulse Resp BP Pulse Ox
100.7 F H 105 26 168/111 94
04/16/25 11:31 04/16/25 14:15 04/16/25 14:15 04/16/25 12:13 04/16/25 13:58
Physical Exam
General: Well Developed, Well Nourished and No Apparent Distress
HEENT: NormoCephalic, Moist mucous membranes and Atraumatic
Respiratory: Clear
Cardiac: S1/S2 and Regular Rhythm; No Murmur or Rub
GI: Soft, Non Tender, Non Distended and Normal Bowel Sounds; No Organomegaly
Rectal: Deferred by Provider
Musculoskeletal: No Clubbing, No Cyanosis and No Edema
Skin: No Rash
Neuro: Nonfocal/grossly intact
Laboratory Results
-
04/16/25 11:47
04/16/25 11:47
Laboratory Results
Lactic Acid 1.3 mmol/L (0.7-2.0) 04/16/25 11:47
Total Bilirubin 1.0 mg/dl (0.2-1.3) 04/16/25 11:47
AST 25 U/L (14-36) 04/16/25 11:47
ALT 25 U/L (0-35) 04/16/25 11:47
Alkaline Phosphatase 93 U/L (38-126) 04/16/25 11:47
Data Reviewed
-
Lab Data: Labs Reviewed by me
Old Records: Reviewed
Impression/Plan
-
IMPRESSION:
PLAN:
# SIRS criteria (fever, tachycardia, tachypnea) unclear source
- Check blood cultures
- COVID-negative
-Urinalysis negative
- Check influenza
- Chest x-ray shows no acute cardiopulmonary process
- No signs of pneumonia or meningitis or endocarditis currently
- IV fluids
- Empiric ceftriaxone given immunocompromised status and prior history of Streptococcus bacteremia
# Fall episode today
- CT head pending
History of Streptococcus pneumonia bacteremia unclear source
Asthma
Seizure disorder
- Continue Keppra
Myelodysplastic syndrome status post bone marrow transplant
Cognitive impairment
Essential hypertension
Hyperlipidemia
Full code
DVT prophylaxis�heparin
Regular diet
[2025-04-16 14:28] VITALS: BP 167/103
[2025-04-16] MEDS: ROCEPHIN 1000 MG IV (14:41)
[2025-04-16] MEDS: STERILE WATER FOR INJECTION 10 ML IV (14:41)
--- NOTE | 2025-04-16 15:49 | EDCM ---
CM reviewed chart and met with pt bedside in ED. Lives with her in 2 story home, [address], has first floor set up.
Independent in ADLs, personal care and ambulation at baseline, no assistive devices. No DME other than built in shower bench.
Confirms prescription coverage.
Hx [facility] in June, hx SNF many years ago.
PCP: Forrest Kathleen
Pharmacy: [facility]
Anticipate discharge home, CM will continue to follow for all discharge planning needs.
[2025-04-16 17:00] VITALS: BP 160/106
[2025-04-16] MEDS: NSS 1000 IV (17:13)
[2025-04-16 20:30] VITALS: BP 172/111; BMI 24.8
[2025-04-16] MEDS: HEPARIN SC (20:37)
[2025-04-16 23:18] VITALS: BP 180/110
--- NOTE | 2025-04-16 23:22 | PTCARENOTE ---
Addendum entered by Marian Perla RN 04/17/25 01:22:
Orders received for PRN hydralazine for SBP >170. Administered, see AUG.
Original Note:
Pt's blood pressure manually was 180/110. Contacted House Provider, Rebekah Ragsdale, and asked if we ought to discontinue her IVF and give anything for the BP. I was advised to turn off the IVF. No additional orders to treat HTN at this time.
Additionally, informed Rebekah that the pt refused her heparin shot. Also asked about pt's keppra, which has not been ordered.
[2025-04-16] MEDS: APRESOLINE 5 MG IV (23:44)
[2025-04-16] MEDS: KEPPRA 250 MG PO (23:44)
[2025-04-17 00:34] VITALS: BP 163/99
[2025-04-17] MEDS: NSS IV (02:44)
[2025-04-17 06:58] LABS: Hematocrit 48.1 % (37.0-47.0); Hemoglobin 16.4 g/dL (12.0-16.0); Mean Corp Hgb Conc. 34.1 g/dL (33.0-37.0); Mean Corpuscular Volume 85.9 fL (81.0-99.0); Nucleated Red Blood Cells % 0 %; Platelet Count 242 10^3/uL (130-400); Red Cell Dist. Width 13.6 % (11.5-14.5)
[2025-04-17 07:13] VITALS: BP 155/88
[2025-04-17 07:26] LABS: ALT (SGPT) 28 U/L (0-35); AST (SGOT) 35 U/L (14-36); Albumin 4.5 g/dl (3.5-5.0); Alkaline Phosphatase 92 U/L (38-126); Blood Urea Nitrogen 13 mg/dl (7-17); Calcium 9.0 mg/dl (8.4-10.2); Carbon Dioxide 25 mmol/L (22-30); Chloride 102 mmol/L (98-107); Estimated Creatinine Clearance 62 ml/min; Glucose 111 mg/dl (70-99); Potassium 3.7 mmol/L (3.5-5.1); Sodium 138 mmol/L (135-145); Total Protein 8.0 g/dl (6.3-8.2); eGFR > 60.00
[2025-04-17] MEDS: HEPARIN 5000 UNITS SC ×2 (09:04→19:43)
[2025-04-17] MEDS: KEPPRA 250 MG PO ×2 (09:04→19:55)
--- NOTE | 2025-04-17 10:57 | W.PN.HOSP.TC ---
Today's Communication/Plan
-
Continue antibiotic, pending culture result.
PT consult
Assessment / Plan
Assessment / Plan
Impression:
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 She
initially fell and upon attempting to rise she fell again. Her spouse states that she has been feeling weak recently. She was treated for urinary tract infection few weeks ago which spouse believes is not resolved. Patient has fever 100.7
recently and shortness of breath but walking to the stretcher. Did not have any nausea. No chest pain or abdominal pain. No headache or neck pain. No urinary symptoms. No rashes on the body. No chest pain or palpitations or dizziness or
syncope. Recent admitted in June for Streptococcus bacteremia without any clear source. She was treated with ceftriaxone. She had echocardiogram which was unremarkable. She denies smoking or alcohol use.
Assessment/plan:
SIRS criteria (fever, tachycardia, tachypnea) unclear source
Blood cultures pending, COVID-negative, urine analysis negative, flu negative.
Chest x-ray shows no acute cardiopulmonary process
No signs of pneumonia or meningitis or endocarditis currently
IV fluids
Continue empiric ceftriaxone given immunocompromised status and prior history of Streptococcus bacteremia
Status post fall
- CT head shows no acute intracranial process
PT/OT
History of Streptococcus pneumonia bacteremia unclear source
Ordered blood culture
Seizure disorder
- Continue Keppra
Myelodysplastic syndrome status post bone marrow transplant
Cognitive impairment
Essential hypertension
Hyperlipidemia
CODE STATUS: Full code
DVT prophylaxis: Heparin
Diet: Regular diet
Disposition: Continue antibiotic, pending culture result.
Total time spent on today's encounter was 55 minutes which included time spent in counseling the patient/family regarding diagnosis and treatment plan as listed above, goals of care, and symptom management. Case was discussed with nursing staff,
specialists, and care coordinators/case management. All labs and imaging personally reviewed by me. Remainder the time spent in detailed review of previous records, lab data, imaging, and other medical provider documentation.
Anticipated Discharge: 24 - 48 hours
Subjective/Interval History
-
Date of Service: April 17, 2025
Patient seen and examined at bedside, patient is very confused and cannot give control
Objective Data
-
Labs:
Laboratory Results
04/17/25
05:52
WBC 8.9
Hgb 16.4 H
Hct 48.1 H
Plt Count 242
Sodium 138
Potassium 3.7
Chloride 102
Carbon Dioxide 25
BUN 13
Creatinine 0.7
Glucose 111 H
Calcium 9.0
Total Bilirubin 0.6
AST 35
ALT 28
Alkaline Phosphatase 92
Vital Signs:
Vital Signs
Temp Pulse Resp BP Pulse Ox
97.9 F 95 18 155/88 98
04/17/25 07:13 04/17/25 07:13 04/17/25 07:13 04/17/25 07:13 04/17/25 07:13
I&O
04/16/25 04/17/25 04/18/25
06:59 06:59 06:59
Intake Total 240 / 240
Balance 240 / 240
Physical Exam
-
General: Well Developed
HEENT: Normocephalic, Atraumatic, Moist Mucous Membranes, No Ptosis, PERRLA and Nose Appears Normal
Respiratory: Rales and Non Labored Respirations
Cardiac: Regular Rhythm and S1/S2
Breast: Deferred by me
GI: Soft, Nontender, Nondistended and Normal Bowel Sounds
Genito-urinary: No Costovertebral Tender
Musculoskeletal: No Clubbing, No Cyanosis and No Edema
Skin: Warm
Neuro: Awake
Psych: Confused
Data Reviewed
-
Diagnostic Radiology: Image personally visualized and interpreted and Report Reviewed by me
CT Scan: Image personally visualized and interpreted and Report Reviewed by me
Ultrasound: Image personally visualized and interpreted and Report Reviewed by me
MRI: Image personally visualized and interpreted and Report Reviewed by me
Medical Tests (Nuc Med, Echo etc): Image personally visualized and interpreted and Report Reviewed by me
Labs: Labs Reviewed by me
Old Records: Reviewed
--- NOTE | 2025-04-17 13:57 | CON.NEURO4 ---
Consultation - Neurology 4
-
CONSULTING PHYSICIAN: Justyn Cervantes MD
REFERRING PHYSICIAN: Javan Woodruff MD
DICTATED BY: Justyn Cervantes MD
DATE/TIME OF REQUEST: 04/17/2025
DATE/TIME OF CONSULTATION: 04/17/2025
Reason for Consultation: Dementia, fall
Assessment and Plan:
. CT of the head does not show any acute intracranial abnormality.
The patient does not have ventriculomegaly on CT head. She has memory problems which have been going on for at least 2 years, that, does not make her a good candidate for ventriculoperitoneal shunting for normal pressure hydrocephalus, which appears
to be less likely. On my review of the CT of the head there is no ventriculomegaly seen. The patient has had episodes of falling over the last about 6 months and she has had urinary incontinence for last about 1 month as per patient's .
Recommend MRI of the brain with and without contrast.
The patient likely has Alzheimer's disease for which she needs to follow-up with Dr. Nolan who is specialist for patients with dementia.The patient is still not on any medicine for Alzheimer's disease because the patient refused to follow-up with
Dr. Nolan as per patient's .
History of seizure disorder, therefore, continue Keppra.
Will sign off. Please call if you have any question.
History of Present Illness:
The patient is a 80 years old female, with a past medical history of asthma, seizure disorder on Keppra on Keppra, dementia for which she has seen Dr. Nolan who is a specialist for patients with dementia, as per patient's , hypertension,
hyperlipidemia, who presented to the ER after a fall. According to her the patient's memory problems have been present for at least 2 years, while she has been falling for about 3 to 6 months and for about the last 1 month she has developed
urinary incontinence. The patient keeps repeating the same phrases again and again as per her . The thinks that the patient's recent memory is worse than her remote memory. She was treated for her urinary tract infection a few weeks
ago and according to her it is still not fully treated. The patient is still not on any medicine for Alzheimer's disease because the patient refused to follow-up with Dr. Nolan. There is no history of speech difficulty or any focal
weakness of arms or legs.
The history was obtained from patient's who appeared to be a good historian.
Past Medical History: Asthma, seizure disorder on Keppra on Keppra, dementia,hypertension, hyperlipidemia,
Review of Systems: The patient denies headache dizziness chest pain shortness of breath fever and chills.
Neurologic Examination:
The patient is alert and is oriented to self and her . She knows her name and also knows the name of her . The patient cannot tell her age or the month of the year. She knew the name of the president. She is unable to do with the
serial '7s, she knows her home address but she cannot tell what she had for breakfast this morning.
Speech is clear
Cranial nerves II through XII grossly intact
The motor strength is grossly 5 out of 5 bilaterally
The sensations are grossly intact
There is no limb ataxia seen.
Vital Signs and Labs
-
Vital Signs and Labs:
Vital Signs
Temp Pulse Resp BP Pulse Ox
36.6 C 95 18 155/88 98
04/17/25 07:13 04/17/25 07:13 04/17/25 07:13 04/17/25 07:13 04/17/25 07:13
Lab Results
04/17/25 05:52
04/17/25 05:52
Sodium 138 mmol/L (135-145) 04/17/25 05:52
Potassium 3.7 mmol/L (3.5-5.1) 04/17/25 05:52
BUN 13 mg/dl (7-17) 04/17/25 05:52
Glucose 111 mg/dl (70-99) H 04/17/25 05:52
Calcium 9.0 mg/dl (8.4-10.2) 04/17/25 05:52
Medications
-
Active Medications
Generic Name Dose Route Start Last Admin
Trade Name Freq PRN Reason Stop Dose Admin
Acetaminophen 650 mg 04/16/25 15:14
Acetaminophen 325 Mg Tablet PO 05/14/25 15:13
Q4HPRN PRN
mild pain/ADAN/temp> 100.4F
Ceftriaxone Sodium 1,000 mg 04/16/25 16:00 04/16/25 14:41
Ceftriaxone 1000 Mg / 10 Ml Vial IV 1,000 mg
Q24H XIMENA Administration
Heparin Sodium 5,000 units 04/16/25 20:00 04/17/25 09:04
Heparin 5,000 Units/Ml 1 Ml Vial SC 05/14/25 19:59 5,000 units
Q12 XIMENA Administration
Hydralazine HCl 5 mg 04/16/25 23:33 04/16/25 23:44
Hydralazine 20 Mg/Ml Vial IV 05/14/25 23:32 5 mg
Q4HPRN PRN Administration
sbp>170
Levetiracetam 250 mg 04/17/25 08:00 04/17/25 09:04
Levetiracetam 250 Mg Regular Release Tablet PO 05/15/25 07:59 250 mg
BID XIMENA Administration
Sodium Chloride 0 flush 04/16/25 15:00
Sodium Chloride 0.9% (Flush) Syringe IV 05/14/25 14:59
PER PROTOCOL XIMENA
Sterile Water 10 ml 04/16/25 16:00 04/16/25 14:41
Sterile Water For Injection 10 Ml Vial IV 05/14/25 15:59 10 ml
Q24H XIMENA Administration
Home Medications
�Medication �Instructions �Recorded
levetiracetam 250 mg tablet 250 mg PO BID 07/01/24
(Keppra)
[2025-04-17 15:01] VITALS: BP 157/90
[2025-04-17] MEDS: ROCEPHIN 1000 MG IV (16:49)
[2025-04-17] MEDS: STERILE WATER FOR INJECTION 10 ML IV (16:49)
[2025-04-17] MEDS: RISPERDAL M-TAB (ORALLY DISINTEGRATING) 0.25 MG PO (21:38)
[2025-04-17 23:23] VITALS: BP 145/74
[2025-04-18 07:05] VITALS: BP 146/94
[2025-04-18 08:19] LABS: Hematocrit 48.7 % (37.0-47.0); Hemoglobin 16.3 g/dL (12.0-16.0); Mean Corp Hgb Conc. 33.5 g/dL (33.0-37.0); Mean Corpuscular Volume 86.8 fL (81.0-99.0); Platelet Count 233 10^3/uL (130-400); Red Cell Dist. Width 13.8 % (11.5-14.5)
[2025-04-18 09:02] LABS: Blood Urea Nitrogen 15 mg/dl (7-17); Calcium 8.8 mg/dl (8.4-10.2); Carbon Dioxide 28 mmol/L (22-30); Chloride 103 mmol/L (98-107); Estimated Creatinine Clearance 48 ml/min; Glucose 106 mg/dl (70-99); Potassium 3.6 mmol/L (3.5-5.1); Sodium 140 mmol/L (135-145); eGFR > 60.00
[2025-04-18] MEDS: HEPARIN 5000 UNITS SC ×2 (09:28→20:26)
[2025-04-18] MEDS: KEPPRA 250 MG PO ×2 (09:28→20:26)
--- NOTE | 2025-04-18 12:32 | W.PN.HOSP.TC ---
Today's Communication/Plan
-
Medically clear for discharge.
Assessment / Plan
Assessment / Plan
Impression:
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 She
initially fell and upon attempting to rise she fell again. Her spouse states that she has been feeling weak recently. She was treated for urinary tract infection few weeks ago which spouse believes is not resolved. Patient has fever 100.7
recently and shortness of breath but walking to the stretcher. Did not have any nausea. No chest pain or abdominal pain. No headache or neck pain. No urinary symptoms. No rashes on the body. No chest pain or palpitations or dizziness or
syncope. Recent admitted in June for Streptococcus bacteremia without any clear source. She was treated with ceftriaxone. She had echocardiogram which was unremarkable. She denies smoking or alcohol use.
Assessment/plan:
SIRS criteria (fever, tachycardia, tachypnea) unclear source
Blood cultures pending, COVID-negative, urine analysis negative, flu negative.
Chest x-ray shows no acute cardiopulmonary process
No signs of pneumonia or meningitis or endocarditis currently
IV fluids
Continue empiric ceftriaxone given immunocompromised status and prior history of Streptococcus bacteremia.
May switch to Ceftin on discharge for this and on 3 days.
Acute metabolic encephalopathy.
Cannot rule out underlying dementia.
Discussed with at bedside.
Requested neurology consult.
Neurology input appreciated.
Follow-up with Dr. Nolan as outpatient.
Status post fall
- CT head shows no acute intracranial process
PT/OT
Dc to rehab
History of Streptococcus pneumonia bacteremia unclear source
negative blood culture
Seizure disorder
- Continue Keppra
Myelodysplastic syndrome status post bone marrow transplant
Cognitive impairment
Essential hypertension
Hyperlipidemia
CODE STATUS: Full code
DVT prophylaxis: Heparin
Diet: Regular diet
Family communication: Discussed with at bedside.
Disposition: Medically clear for discharge
Total time spent on today's encounter was 55 minutes which included time spent in counseling the patient/family regarding diagnosis and treatment plan as listed above, goals of care, and symptom management. Case was discussed with nursing staff,
specialists, and care coordinators/case management. All labs and imaging personally reviewed by me. Remainder the time spent in detailed review of previous records, lab data, imaging, and other medical provider documentation.
Anticipated Discharge: Today
Subjective/Interval History
-
Date of Service: April 18, 2025
Patient seen and examined at bedside, awake but not fully oriented.
Objective Data
-
Labs:
Laboratory Results
04/18/25
07:52
WBC 8.8
Hgb 16.3 H
Hct 48.7 H
Plt Count 233
Sodium 140
Potassium 3.6
Chloride 103
Carbon Dioxide 28
BUN 15
Creatinine 0.9
Glucose 106 H
Calcium 8.8
Vital Signs:
Vital Signs
Temp Pulse Resp BP Pulse Ox
98.2 F 94 18 146/94 93
04/18/25 07:05 04/18/25 07:05 04/18/25 07:05 04/18/25 07:05 04/18/25 07:05
I&O
04/17/25 04/18/25 04/19/25
06:59 06:59 06:59
Intake Total 240 / 240 180 / 180
Balance 240 / 240 180 / 180
Physical Exam
-
General: Well Developed
HEENT: Normocephalic, Atraumatic, Moist Mucous Membranes, No Ptosis, PERRLA and Nose Appears Normal
Respiratory: Rales and Non Labored Respirations
Cardiac: Regular Rhythm and S1/S2
Breast: Deferred by me
GI: Soft, Nontender, Nondistended and Normal Bowel Sounds
Genito-urinary: No Costovertebral Tender
Musculoskeletal: No Clubbing, No Cyanosis and No Edema
Skin: Warm
Neuro: Awake
Psych: Confused
[2025-04-18 12:47] VITALS: BP 136/95; PULSE 100; O2SAT 95
[2025-04-18 13:24] VITALS: BP 136/95; PULSE 100; O2SAT 95
--- NOTE | 2025-04-18 14:55 | CM ---
PT OT indicated SNF .
Spoke with patient and Tolu about SNF.PAc Data given .
will reviewed and let CM know which SNF they want.
PLAn Locate SNF
[2025-04-18 15:00] VITALS: BP 129/80
[2025-04-18] MEDS: ROCEPHIN 1000 MG IV (15:30)
[2025-04-18] MEDS: STERILE WATER FOR INJECTION 10 ML IV (15:31)
[2025-04-18] MEDS: HALDOL 2 MG IM (16:06)
--- NOTE | 2025-04-18 16:18 | PTCARENOTE ---
After left, patient became increasingly agitated. Refusing to stay in room. Patient states she does not want to stay in hospital and she knows ' what the fuck he is doing.' She reports she does want to go to SNF however does not want to stay
in the hospital another night. Patient refused PO atarax for anxiety. Continued behavior of climbing out of bed and chair despite fall risk. IM haldol administered for continued agitation and refusing to cooperate. Plan of care ongoing.
[2025-04-18] MEDS: ATARAX 25 MG PO (17:51)
[2025-04-18 23:25] VITALS: BP 159/90
[2025-04-19 07:00] VITALS: BP 156/90
[2025-04-19] MEDS: HEPARIN 5000 UNITS SC (09:34)
[2025-04-19] MEDS: KEPPRA 250 MG PO (09:35)
[2025-04-19] MEDS: ATARAX 25 MG PO (09:35)
[2025-04-19] MEDS: DESENEX/MITRAZOL/ZEASORB 1 APPLIC TOPICAL (09:47)
--- NOTE | 2025-04-19 11:15 | CM ---
Addendum entered by Bushra Jauregui 04/19/25 13:50:
1630 pickup
VM left for spouse and update to SNF admissions
Addendum entered by Bushrasravanthi Jauregui 04/19/25 13:04:
Pt accepted for admission to 1st choice SNF/[facility]
Spouse in agreement with plan- IMM verbally reviewed over phone
Copy left bedside for his visit later today
Transport forms completed
Discharge Disposition- [facility] via BLS
Phone- [phone] Fax- [phone]
Original Note:
CM reviewed chart and completed bedside visit with pt
She deferred dc planning to spouse/Tolu
Call withmichaelle rodriguez who is requesting SNF to arranged
[facility] is 1st choice and he is completing visit today
Spouse in agreement with referrals to [facility] [place] [facility]
Referrals sent and pending
Pt with qualifying stay
Discharge Disposition- SNF
[2025-04-19 13:19] VITALS: BP 148/90
--- NOTE | 2025-04-19 13:25 | W.PN.HOSP.TC ---
Today's Communication/Plan
-
Medically clear for discharge
Assessment / Plan
Assessment / Plan
Impression:
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 She
initially fell and upon attempting to rise she fell again. Her spouse states that she has been feeling weak recently. She was treated for urinary tract infection few weeks ago which spouse believes is not resolved. Patient has fever 100.7
recently and shortness of breath but walking to the stretcher. Did not have any nausea. No chest pain or abdominal pain. No headache or neck pain. No urinary symptoms. No rashes on the body. No chest pain or palpitations or dizziness or
syncope. Recent admitted in June for Streptococcus bacteremia without any clear source. She was treated with ceftriaxone. She had echocardiogram which was unremarkable. She denies smoking or alcohol use.
Culture negative, antibiotic discontinued
Assessment/plan:
SIRS criteria (fever, tachycardia, tachypnea) unclear source
Blood cultures pending, COVID-negative, urine analysis negative, flu negative.
Chest x-ray shows no acute cardiopulmonary process
No signs of pneumonia or meningitis or endocarditis currently
IV fluids
Continue empiric ceftriaxone given immunocompromised status and prior history of Streptococcus bacteremia.
All cultures remains negative, discontinue further antibiotics.
Acute metabolic encephalopathy.
Cannot rule out underlying dementia.
Discussed with at bedside.
Requested neurology consult.
Neurology input appreciated.
Follow-up with Dr. Nolan as outpatient.
Neurology recommending MRI with and without contrast, prescription given for outpatient MRI, discussed with and patient needs open MRI.
Status post fall
- CT head shows no acute intracranial process
PT/OT
Dc to rehab
History of Streptococcus pneumonia bacteremia unclear source
negative blood culture
Seizure disorder
- Continue Keppra
Myelodysplastic syndrome status post bone marrow transplant
Cognitive impairment
Essential hypertension
Hyperlipidemia
CODE STATUS: Full code
DVT prophylaxis: Heparin
Diet: Regular diet
Family communication: Discussed with at bedside.
Disposition: Medically clear for discharge
Total time spent on today's encounter was 55 minutes which included time spent in counseling the patient/family regarding diagnosis and treatment plan as listed above, goals of care, and symptom management. Case was discussed with nursing staff,
specialists, and care coordinators/case management. All labs and imaging personally reviewed by me. Remainder the time spent in detailed review of previous records, lab data, imaging, and other medical provider documentation.
Anticipated Discharge: Today
Subjective/Interval History
-
Date of Service: April 19, 2025
Patient seen and examined at bedside, overall confused but otherwise denies any chest pain or shortness of breath, no abdominal pain, no nausea, no vomiting, no diarrhea or constipation.
Objective Data
-
Vital Signs:
Vital Signs
Temp Pulse Resp BP Pulse Ox
99.2 F 88 18 148/90 93
04/19/25 13:19 04/19/25 13:19 04/19/25 13:19 04/19/25 13:19 04/19/25 13:19
I&O
04/18/25 04/19/25 04/20/25
06:59 06:59 06:59
Intake Total 180 / 180 570 / 570
Balance 180 / 180 570 / 570
Physical Exam
-
General: Well Developed
HEENT: Normocephalic, Atraumatic, Moist Mucous Membranes, No Ptosis, PERRLA and Nose Appears Normal
Respiratory: Rales and Non Labored Respirations
Cardiac: Regular Rhythm and S1/S2
Breast: Deferred by me
GI: Soft, Nontender, Nondistended and Normal Bowel Sounds
Genito-urinary: No Costovertebral Tender
Musculoskeletal: No Clubbing, No Cyanosis and No Edema
Skin: Warm
Neuro: Awake
Psych: Confused
--- NOTE | 2025-04-19 13:30 | W.DCSUMMARY ---
Discharge Summary
Discharge Data
Date of Admission: 04/16/25
Date of Discharge: 04/19/25
Total time spent discharging patient (in min): 40
-
Pending Results: No
Hospital Course
Hospital course
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 She
initially fell and upon attempting to rise she fell again. Her spouse states that she has been feeling weak recently. She was treated for urinary tract infection few weeks ago which spouse believes is not resolved. Patient has fever 100.7
recently and shortness of breath but walking to the stretcher. Did not have any nausea. No chest pain or abdominal pain. No headache or neck pain. No urinary symptoms. No rashes on the body. No chest pain or palpitations or dizziness or
syncope. Recent admitted in June for Streptococcus bacteremia without any clear source. She was treated with ceftriaxone. She had echocardiogram which was unremarkable. She denies smoking or alcohol use.
Culture negative, antibiotic discontinued
During hospitalization patient was treated from the following
SIRS criteria (fever, tachycardia, tachypnea) unclear source
Blood cultures pending, COVID-negative, urine analysis negative, flu negative.
Chest x-ray shows no acute cardiopulmonary process
No signs of pneumonia or meningitis or endocarditis currently
IV fluids
Continue empiric ceftriaxone given immunocompromised status and prior history of Streptococcus bacteremia.
All cultures remains negative, discontinue further antibiotics.
Acute metabolic encephalopathy.
Cannot rule out underlying dementia.
Discussed with at bedside.
Requested neurology consult.
Neurology input appreciated.
Follow-up with Dr. Nolan as outpatient.
Neurology recommending MRI with and without contrast, prescription given for outpatient MRI, discussed with and patient needs open MRI.
Status post fall
- CT head shows no acute intracranial process
PT/OT
Dc to rehab
History of Streptococcus pneumonia bacteremia unclear source
negative blood culture
Seizure disorder
- Continue Keppra
Myelodysplastic syndrome status post bone marrow transplant
Cognitive impairment
Essential hypertension
Hyperlipidemia
CODE STATUS: Full code
DVT prophylaxis: Heparin
Diet: Regular diet
Family communication: Discussed with at bedside.
Disposition: Medically clear for discharge
Total time spent on today's encounter was 40 minutes which included time spent in counseling the patient/family regarding diagnosis and treatment plan as listed above, goals of care, and symptom management. Case was discussed with nursing staff,
specialists, and care coordinators/case management. All labs and imaging personally reviewed by me. Remainder the time spent in detailed review of previous records, lab data, imaging, and other medical provider documentation.
Anticipated Discharge: Today
Discharge Plan
-
Patient Disposition: Assisted/SNF
Discharge Diagnosis/Procedures: Acute metabolic encephalopathy
SIRS
Diet: As tolerated and Regular
Activity: With assistance
Referrals:
Jean Kathleen MD [Family Provider, Internal Medicine]
Prescriptions:
New
(DME) MRI of the brain with and without contrast
See Rx Instructions .Route .MEDSUPPLY Qty: 1 0RF
Rx Instructions:
Diagnosis: Mild cognitive impairment of uncertain or unknown etiology
ICD code G31.84
please fax result to PCP
hydroxyzine HCl 25 mg Tablet
25 mg PO QIDPRN PRN (Reason: Anxiety) Qty: 0 0RF
Continued
levetiracetam [Keppra] 250 mg Tablet
250 mg PO BID
Discharge Orders:
Discharge Patient (As Directed); Ordered 04/19/25
Ordered By: Javan Woodruff
Discharge Date and Time
Print Language: SETSWANA
[2025-04-19 15:05] VITALS: BP 152/87
[2025-04-19] MEDS: ROCEPHIN 1000 MG IV (15:28)
[2025-04-19] MEDS: STERILE WATER FOR INJECTION 10 ML IV (15:28)
== END 2025-04-19 17:25 | DRG 864 ==
LOC: 4 EAST ACU 15:10
PROVIDERS: ADMITTING PHYSICIAN Hospitalist; ATTENDING PHYSICIAN General Practice; CONSULT PHYSICIAN Psychiatry & Neurology Neurology; EMERGENCY PHYSICIAN Emergency Medicine; FAMILY PHYSICIAN Internal Medicine Geriatric Medicine
DX: R50.9 Fever, unspecified (principal); G93.41 Metabolic encephalopathy; D84.9 Immunodeficiency, unspecified; F02.818 Dementia in other diseases classified elsewhere, unspecified severity, with other behavioral disturbance; F02.84 Dementia in other diseases classified elsewhere, unspecified severity, with anxiety; Z94.81 Bone marrow transplant status; R65.10 Systemic inflammatory response syndrome (SIRS) of non-infectious origin without acute organ dysfunction; G30.9 Alzheimer's disease, unspecified; K21.9 Gastro-esophageal reflux disease without esophagitis; G40.909 Epilepsy, unspecified, not intractable, without status epilepticus; J45.998 Other asthma; D46.9 Myelodysplastic syndrome, unspecified; I11.0 Hypertensive heart disease with heart failure; I50.9 Heart failure, unspecified; E78.5 Hyperlipidemia, unspecified; W19.XXXA Unspecified fall, initial encounter; Y93.89 Activity, other specified; Y92.009 Unspecified place in unspecified non-institutional (private) residence as the place of occurrence of the external cause; Z87.440 Personal history of urinary (tract) infections; Z88.2 Allergy status to sulfonamides; Z88.8 Allergy status to other drugs, medicaments and biological substances; Z88.1 Allergy status to other antibiotic agents; Z91.0110 Allergy to milk products, unspecified; Z87.01 Personal history of pneumonia (recurrent); Z11.52 Encounter for screening for COVID-19
CPT/HCPCS: 51701; 70450; 71046; 80048; 80053; 81003; 81015; 83605; 85025; 85027; 87040; 87502; 87811; 93005; 96360; 96361; 97163; 97167; 99285